=== PATIENT | male | born 1980 | race African-American/Black ===

== ENCOUNTER 2016-11-04 00:14 | Emergency (ER) | payer OTHER ==
[~2016-11-04] VITALS: Ht 190.5 cm; Wt 72.6 kg
[2016-11-04] MEDS ORDERED: RX-TRIMETH/SULFA. 160-800 MG (BACTRIM DS) TAB PPK#2 PO STA (00:25)
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
[2016-11-04] MEDS ORDERED: SULF1TAB35 PO (00:31)
[2016-11-04] MEDS ORDERED: SILV20CR14 TP (00:31)
[2016-11-04] MEDS ORDERED: SILVER SULFADIAZINE 50 GM CREAM ONE (00:34)
[2016-11-04] MEDS ORDERED: ADAL40PE2 SQ (00:39)
[2016-11-04 00:53] VITALS: BP 123/70
[2016-11-04] MEDS ORDERED: SILVER SULFADIAZINE 50 GM CREAM TOP SCH (09:00)
== END 2016-11-04 00:52 | disposition home or self-care (01) ==
LOC: ER 00:16
DX: T23.271A Burn of second degree of right wrist, initial encounter (principal); X12.XXXA Contact with other hot fluids, initial encounter; Y92.59 Other trade areas as the place of occurrence of the external cause; Y99.0 Civilian activity done for income or pay
CPT/HCPCS: 99283

== ENCOUNTER 2017-02-25 16:23 | Emergency (ER) | payer SELFPAY ==
[~2017-02-25] VITALS: Ht 190.5 cm; Wt 72.6 kg
[~2017-02-25 16:23] MED LIST: ADAL40PE2 SQ; SILV20CR14 TP; SULF1TAB35 PO
--- NOTE | 2017-02-25 17:58 | ED Integumentary General ---
General Chief Complaint: Skin/Wound Problems Stated Complaint: SKIN PROBLEMS Nursing Triage Note: AMB TO ROOM HAS AREA OF CONCERN AROUND COLOSTOMY THAT LOOK LIKE BLISTERS.HAS BEEN SEEN BY [facility] BUT STATES THEY DO NOT KNOW WHAT TO DO WITH IT. History of Present Illness Time seen by provider: 16:55 Initial Comments Patient reports excoriation and bleeding at stoma site for several months, he has been seen at [facility] and treated with different powders to try and assist with healing of the stoma edges. He had a colostomy done approximately 2 years ago for Crohn's disease. This was done in [place]. He does not see a general surgeon here. He reports the stoma is extremely sensitive and has been increasingly becoming more painful. He denies any other abdominal symptoms at the present time, he denies any changes in the effluent. He is well versed in his colostomy care M.D. for back on a regular basis changes the appliance as needed Timing/Duration: getting worse Severity: moderate Possible Cause: no cause identified Associated Symptoms: denies symptoms Allergies and Home Medications Allergies Coded Allergies: No Known Drug Allergies (Unverified , 11/04/16) Home Medications Adalimumab 40 Mg/0.8 Ml Pen.ij.kit, 40 MG SQ, (Reported) Silver Sulfadiazine 20 Gm Cream..g., 0 TP BID, #1 Prescribed by: ADA HARRISON on 11/04/16 0031 Constitutional: no symptoms reported, see HPI EENTM: no symptoms reported, see HPI Respiratory: no symptoms reported, see HPI Cardiovascular: no symptoms reported, see HPI Gastrointestinal: see HPI, abdominal pain (at stoma site from colostomy) Genitourinary: no symptoms reported, see HPI Musculoskeletal: no symptoms reported, see HPI Skin: see HPI, other (excoriation at stoma site) Psychiatric/Neurological: No Symptoms Reported, See HPI Endocrine: No Symptoms Reported, See HPI Hematologic/Lymphatic: No Symptoms Reported, See HPI All Other Systems Reviewed Negative Unless Noted: Yes Past Vbedkmz-Cbldgd-Rvsqdb Hx Patient Social History Alcohol Use: Denies Use Recreational Drug Use: No Smoking Status: Current Everyday Smoker Type Used: Cigars, Cigarettes Recent Foreign Travel: No Contact w/Someone Who Travel: No Recent Infectious Disease Expo: No Recent Hopitalizations: No Immunizations Up To Date Tetanus Booster (TDap): Less than 5yrs Seasonal Allergies Seasonal Allergies: No Surgeries HX Surgeries: Yes (colostomy) Respiratory Hx Respiratory Disorders: No Cardiovascular Hx Cardiac Disorders: No Neurological Hx Neurological Disorders: No Reproductive System Hx Reproductive Disorders: No Genitourinary Hx Genitourinary Disorders: No Gastrointestinal Hx Gastrointestinal Disorders: Yes Gastrointestinal Disorders: Crohns Disease Musculoskeletal Hx Musculoskeletal Disorders: No Endocrine Hx Endocrine Disorders: No HEENT HX ENT Disorders: No Cancer Hx Cancer: No Psychosocial Hx Psychiatric Problems: No Integumentary HX Skin/Integumentary Disorder: No Blood Transfusions Hx Blood Disorders: No Reviewed Nursing Assessment Reviewed/Agree w Nursing PMH: Yes Physical Exam Vital Signs Vital Sign - Last 12Hours 02/25/17 02/25/17 16:28 18:17 Temp 97.7 Pulse 79 Resp 18 B/P (MAP) 132/93 Pulse Ox 98 O2 Delivery Room Air Capillary Refill : Less Than 3 Seconds General Appearance: WD/WN, no apparent distress Neck: non-tender, full range of motion, normal inspection Cardiovascular: normal peripheral pulses, regular rate, rhythm, no murmur Respiratory: chest non-tender, lungs clear Gastrointestinal: normal bowel sounds, soft, no organomegaly, No distended (at stoma site), No rebound, tenderness Skin: normal color, warm/dry Skin Problem Location: other (abdomen) Skin Problem Character: tenderness Progress/Results/Core Measures Results/Orders My Orders Orders - MARY JO GONSALES Menthol/Zinc Oxide Ointment (Calmoseptin (02/25/17 21:00) Vital Signs/I&O Vital Sign - Last 12Hours 02/25/17 02/25/17 16:28 18:17 Temp 97.7 97.7 Pulse 79 79 Resp 18 18 B/P (MAP) 132/93 Pulse Ox 98 O2 Delivery Room Air Blood Pressure Mean: 106 Progress Note : Time: 16:55 Progress Note Initial evaluation completed. 1730 colostomy supplies obtained and Calmoseptin. Patient removed his appliance and back. The stoma showed mild excoriation of the skin edges. The stoma and skin were cleaned with sterile saline,it bled easily. It was cleaned dry and, septum was applied to the excoriated area. A new Way for appliance and back for a applied by the patient. This way for includes a removable bag so he can easily apply the, stepped into the irritated area. Discharge instructions were reviewed with the patient. He was encouraged that he follow up with a general surgeon if they stoma continues to be irritated. Encouraged him to clean the skin with gentle soap and water on a regular basis and empty the bag as soon as possible when effluent is present. 174 while preparing the patient's discharge papers, the patient left the hospital prior to discharge instructions being given or telling any staff. He did leave after obtaining extra supplies for his colostomy. Departure Impression Impression: Primary Impression: Stoma dermatitis Disposition: HOME, SELF-CARE Condition: Improved Departure-Patient Inst. Decision time for Depature: 17:30 Referrals: NO,LOCAL PHYSICIAN (PCP/Family) Primary Care Physician Patient Instructions: Ostomy Care, Adult Add. Discharge Instructions: All discharge instructions reviewed with patient and/or family. Voiced understanding. Keep stoma clean and apply Calmoseptine cream as needed Establish with Primary Care. Consider General Surgeon Evaluation if continued problems. Return to emergency department for abdominal pain, increased sensitivity at stoma site, limited or no effluent from the stoma, or new problems. Work/School Note: [employer] Listing Images Torso/Trunk 1 - Mild 2 - Mild, Other-See Progress Note MARY JO GONSALES Feb 25, 2017 17:58
[2017-02-25 18:17] VITALS: BP 132/93
[2017-02-25] MEDS ORDERED: MENTHOL/ZINC OXIDE (CALMOSEPTINE) 113 GM TUBE TOP SCH (21:00)
== END 2017-02-25 18:16 | disposition home or self-care (01) ==
LOC: EDUNIT# 16:23 → ER 16:25
DX: Z43.3 Encounter for attention to colostomy (principal); K50.90 Crohn's disease, unspecified, without complications; F17.210 Nicotine dependence, cigarettes, uncomplicated
CPT/HCPCS: 99281

== ENCOUNTER 2017-05-08 00:11 | Emergency (ER) | payer SELFPAY ==
[~2017-05-08] VITALS: Ht 190.5 cm; Wt 76.7 kg
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
[2017-05-08] MEDS ORDERED: ONDN4T PO (02:02)
[2017-05-08 02:15] VITALS: BP 111/75
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
== END 2017-05-08 02:15 | disposition home or self-care (01) ==
LOC: EDUNIT# 00:11 → ER 00:15
DX: Y92.59 Other trade areas as the place of occurrence of the external cause; F17.290 Nicotine dependence, other tobacco product, uncomplicated; Z93.3 Colostomy status; S06.0X9A Concussion with loss of consciousness of unspecified duration, initial encounter; K50.90 Crohn's disease, unspecified, without complications; Y00.XXXA Assault by blunt object, initial encounter
CPT/HCPCS: 70450; 72125; 99283

== ENCOUNTER 2018-07-20 08:34 | Outpatient (RCR) | payer OTHER ==
[2018-05-20] MEDS: methylPREDNISolone 40 MG/ML (Solu-MEDROL) VIAL IV SCH (12:02)
[2018-05-20] MEDS: diphenhydrAMINE 50 MG/ML INJ (BENADRYL) IV SCH (12:02)
[2018-05-20] MEDS: SODIUM CHLORIDE IV SCH ×2 (12:21)
[2018-05-20] MEDS: INFLIXIMAB IV SCH ×2 (12:21)
[2018-05-20 14:55] VITALS: BP 116/76
[2018-06-03 15:15] VITALS: BP 115/82
[2018-06-03] MEDS: diphenhydrAMINE 50 MG/ML INJ (BENADRYL) IV SCH (15:35)
[2018-06-03] MEDS: methylPREDNISolone 40 MG/ML (Solu-MEDROL) VIAL IV SCH (15:39)
[2018-06-03] MEDS: INFLIXIMAB IV SCH ×2 (16:00)
[2018-06-03] MEDS: SODIUM CHLORIDE IV SCH ×2 (16:00)
[2018-06-03 18:15] VITALS: BP 115/82
[~2018-07-20] VITALS: Ht 190.5 cm; Wt 76.7 kg
[~2018-07-20 08:34] MED LIST changes: +ONDN4T PO; +diphenhydrAMINE 50 MG/ML INJ (BENADRYL) ONE; +methylPREDNISolone 40 MG/ML (Solu-MEDROL) VIAL ONE
[2018-07-20] MEDS: diphenhydrAMINE 50 MG/ML INJ (BENADRYL) IV SCH (08:58)
[2018-07-20] MEDS: methylPREDNISolone 40 MG/ML (Solu-MEDROL) VIAL IV SCH (08:58)
[2018-07-20 09:03] VITALS: BP 128/92
[2018-07-20] MEDS: INFLIXIMAB IV SCH ×2 (09:17)
[2018-07-20] MEDS: SODIUM CHLORIDE IV SCH ×2 (09:17)
== END 2018-08-18 | disposition home or self-care (01) ==
LOC: SDC 08:34
PROVIDERS: ATTEND Internal Medicine Gastroenterology
DX: K50.90 Crohn's disease, unspecified, without complications (principal)
CPT/HCPCS: 96365; 96366; 96374; 96375

== ENCOUNTER 2018-10-18 08:25 | Outpatient (RCR) | payer OTHER ==
[2018-09-01 15:45] VITALS: BP 122/80
[2018-09-01] MEDS: methylPREDNISolone 40 MG/ML (Solu-MEDROL) VIAL IV SCH (15:58)
[2018-09-01] MEDS: diphenhydrAMINE 25 MG TAB (BENADRYL) PO SCH (16:03)
[2018-09-01] MEDS: SODIUM CHLORIDE IV SCH ×2 (16:05)
[2018-09-01] MEDS: INFLIXIMAB IV SCH ×2 (16:05)
[2018-09-01 18:15] VITALS: BP 0/0
[~2018-10-18] VITALS: Ht 190.5 cm; Wt 76.7 kg
[~2018-10-18 08:25] MED LIST changes: +diphenhydrAMINE 50 MG/ML INJ (BENADRYL) IV SCH; -diphenhydrAMINE 50 MG/ML INJ (BENADRYL) ONE; -methylPREDNISolone 40 MG/ML (Solu-MEDROL) VIAL ONE
[2018-10-18] MEDS: diphenhydrAMINE 25 MG TAB (BENADRYL) PO SCH (08:53)
[2018-10-18] MEDS: methylPREDNISolone 40 MG/ML (Solu-MEDROL) VIAL IV SCH (09:14)
[2018-10-18] MEDS: SODIUM CHLORIDE IV SCH ×2 (09:15)
[2018-10-18] MEDS: INFLIXIMAB IV SCH ×2 (09:15)
[2018-10-18 11:22] VITALS: BP 107/74
== END 2018-11-30 | disposition home or self-care (01) ==
LOC: SDC 08:25
PROVIDERS: ATTEND Internal Medicine Gastroenterology
DX: K50.90 Crohn's disease, unspecified, without complications (principal)
CPT/HCPCS: 96365; 96366; 96374

== ENCOUNTER 2019-07-18 12:13 | Observation (INO) | payer BC | END 2019-07-19 12:10 | disposition left against medical advice (07) | LOC: ER 12:13 → 4TH 15:48 ==

== ENCOUNTER 2019-08-01 21:38 | Emergency (ER) | payer BC ==
[~2019-08-01] VITALS: Ht 193 cm; Wt 70.4 kg
[~2019-08-01 21:38] MED LIST changes: +HYDR-3820; -diphenhydrAMINE 50 MG/ML INJ (BENADRYL) IV SCH
--- NOTE | 2019-08-01 21:51 | ED Integumentary General ---
General Chief Complaint: General Problems/Pain Stated Complaint: INCISION PROBLEMS Source: patient Exam Limitations: no limitations (NGOC HATHAWAY APRN) History of Present Illness Date Seen by Provider: Aug 01, 2019 Time Seen by Provider: 21:48 Initial Comments To ER with reports of concerns about an abdominal wall abscess. He was seen here 19 July with a abdominal wall abscess, is admitted to the hospital on IV antibiotics, left AGAINST MEDICAL ADVICE, he was going to follow-up with his surgeon tomorrow, Dr. Jackson in [place] if his symptoms worsen today in terms of size of the area of firmness of the abdominal wall and pain so he came here. Timing/Duration: just prior to arrival Severity: moderate Location: generalized Possible Cause: no cause identified Associated Symptoms: denies symptoms (NGOC HATHAWAY APRN) Allergies and Home Medications Allergies Coded Allergies: No Known Drug Allergies (Unverified , 11/04/16) Home Medications Ciprofloxacin HCl 500 Mg Tablet, 500 MG PO BID Prescribed by: ELDER KHAN on 08/02/19217 Hydrocodone Bit/Acetaminophen 1 Tab Tab, 1 EACH PO Q4-6HR PRN for PAIN-MODERATE Prescribed by: ELDER KHAN on 08/02/19217 Metronidazole 500 Mg Tablet, 500 MG PO TID Prescribed by: ELDER KHAN on 08/02/19217 Patient Home Medication List Home Medication List Reviewed: Yes (NGOC HATHAWAY APRN) Review of Systems Review of Systems Constitutional: see HPI EENTM: see HPI Respiratory: no symptoms reported Cardiovascular: no symptoms reported Gastrointestinal: abdominal pain Genitourinary: no symptoms reported Musculoskeletal: no symptoms reported Skin: no symptoms reported Psychiatric/Neurological: No Symptoms Reported Endocrine: No Symptoms Reported (NGOC HATHAWAY APRN) Past Lurkcco-Ioczel-Vycvjm Hx Patient Social History Drug of Choice: POT Type Used: Cigars Recent Foreign Travel: No Contact w/Someone Who Travel: No Recent Hopitalizations: No (NGOC HATHAWAY APRN) Immunizations Up To Date Tetanus Booster (TDap): Less than 5yrs (NGOC HATHAWAY APRN) Seasonal Allergies Seasonal Allergies: No (NGOC HATHAWAY APRN) Past Medical History Surgeries: Yes Bowel Surgery Respiratory: No Cardiac: No Neurological: No Reproductive Disorders: No Genitourinary: No Gastrointestinal: Yes Crohns Disease Musculoskeletal: No Endocrine: No HEENT: No Cancer: No Psychosocial: No Integumentary: No Blood Disorders: No (NGOC HATHAWAY APRN) Family Medical History No Pertinent Family Hx (NGOC HATHAWAY APRN) Physical Exam Vital Signs Vital Signs - First Documented 08/01/19 21:52 Temp 35.8 Pulse 78 Resp 20 B/P (MAP) 122/93 (103) Pulse Ox 100 O2 Delivery Room Air (ELDER MIRELES MD) Vital Signs Capillary Refill : (NGOC HATHAWAY APRN) General Appearance: WD/WN, no apparent distress HEENT: PERRL/EOMI, normal ENT inspection Respiratory: no respiratory distress, no accessory muscle use Extremities: normal range of motion, non-tender Neurologic/Psychiatric: alert, normal mood/affect, oriented x 3 Skin: normal color, warm/dry Skin Problem Character: other (to the medial inferior aspect of the ileostomy and at the site of the previous healed incision from former colostomy is an area about 2 cm wide and 4 cm long of induration but no fluctuance.) (NGOC HATHAWAY APRN) Progress/Results/Core Measures Results/Orders Lab Results Laboratory Tests Test 08/01/19 22:10 08/01/19 23:35 Range/Units White Blood Count 13.1 H 4.3-11.0 10^3/uL Red Blood Count 4.50 4.35-5.85 10^6/uL Hemoglobin 13.0 L 13.3-17.7 G/DL Hematocrit 39 L 40-54 % Mean Corpuscular Volume 87 80-99 FL Mean Corpuscular Hemoglobin 29 25-34 PG Mean Corpuscular Hemoglobin Concent 33 32-36 G/DL Red Cell Distribution Width 16.5 H 10.0-14.5 % Platelet Count 387 130-400 10^3/uL Mean Platelet Volume 9.8 7.4-10.4 FL Neutrophils (%) (Auto) 77 H 42-75 % Lymphocytes (%) (Auto) 15 12-44 % Monocytes (%) (Auto) 7 0-12 % Eosinophils (%) (Auto) 1 0-10 % Basophils (%) (Auto) 0 0-10 % Neutrophils # (Auto) 10.1 H 1.8-7.8 X 10^3 Lymphocytes # (Auto) 1.9 1.0-4.0 X 10^3 Monocytes # (Auto) 1.0 0.0-1.0 X 10^3 Eosinophils # (Auto) 0.1 0.0-0.3 10^3/uL Basophils # (Auto) 0.0 0.0-0.1 10^3/uL Sodium Level 137 135-145 MMOL/L Potassium Level 3.5 L 3.6-5.0 MMOL/L Chloride Level 104 98-107 MMOL/L Carbon Dioxide Level 22 21-32 MMOL/L Anion Gap 11 5-14 MMOL/L Blood Urea Nitrogen 13 7-18 MG/DL Creatinine 1.06 0.60-1.30 MG/DL Estimat Glomerular Filtration Rate > 60 BUN/Creatinine Ratio 12 Glucose Level 110 H 70-105 MG/DL Calcium Level 9.6 8.5-10.1 MG/DL Corrected Calcium 9.5 8.5-10.1 MG/DL Total Bilirubin 0.2 0.1-1.0 MG/DL Aspartate Amino Transf (AST/SGOT) 26 5-34 U/L Alanine Aminotransferase (ALT/SGPT) 25 0-55 U/L Alkaline Phosphatase 69 40-136 U/L Total Protein 7.8 6.4-8.2 GM/DL Albumin 4.1 3.2-4.5 GM/DL Urine Color YELLOW Urine Clarity CLEAR Urine pH 5 5-9 Urine Specific [place] 1.025 H 1.016-1.022 Urine Protein 3+ H NEGATIVE Urine Glucose (UA) NEGATIVE NEGATIVE Urine Ketones NEGATIVE NEGATIVE Urine Nitrite NEGATIVE NEGATIVE Urine Bilirubin NEGATIVE NEGATIVE Urine Urobilinogen NORMAL NORMAL MG/DL Urine Leukocyte Esterase NEGATIVE NEGATIVE Urine RBC (Auto) NEGATIVE NEGATIVE Urine RBC NONE /HPF Urine WBC RARE /HPF Urine Squamous Epithelial Cells 0-2 /HPF Urine Crystals NONE /LPF Urine Bacteria FEW H /HPF Urine Casts NONE /LPF Urine Mucus LARGE H /LPF Urine Culture Indicated NO (ELDER MIRELES MD) My Orders Orders - ELDER MIRELES MD Iohexol Injection (Omnipaque 350 Mg/Ml 1 (08/01/19 23:45) Received Contrast (Hold Metformin- Contr (08/01/19 23:45) Ns (Ivpb) (Sodium Chloride 0.9% Ivpb Bag (08/01/19 23:45) Diatrizoate Meglum/Sodium 37% (Gastrogra (08/01/19 23:45) Fentanyl Injection (Sublimaze Injection (08/02/19 00:15) Oxycodone/Apap 5/325mg Tablet (Percocet (08/02/19 01:45) Piperacillin/Tazobactam (Bulk) (Zosyn In (08/02/19 01:45) Piperacillin Sodium/Tazobactam (Zosyn Vi (08/02/19 01:45) Piperacillin Sodium/Tazobactam (Zosyn Vi (08/02/19 01:46) Ns (Ivpb) (Sodium Chloride 0.9% Ivpb Bag (08/02/19 01:47) (ELDER MIRELES MD) Medications Given in ED Current Medications Medications Dose Ordered Sig/Darryl Route Start Time Stop Time Status Last Admin Dose Admin Diatrizoate Meglum/ Diatrizoate Sod 120 ml ONCE ONCE PO 08/01/19 23:45 08/01/19 23:46 DC 08/01/19 23:47 25 ML Fentanyl Citrate 50 mcg ONCE ONCE IVP 08/02/19 00:15 08/02/19 00:16 DC 08/02/19 00:25 50 MCG Iohexol 100 ml ONCE ONCE IV 08/01/19 23:45 08/01/19 23:46 DC 08/01/19 23:47 88 ML Oxycodone/ Acetaminophen 1 tab ONCE ONCE PO 08/02/19 01:45 08/02/19 01:46 DC 08/02/19 02:00 1 TAB Piperacillin Sod/ Tazobactam Sod 4.5 gm/Sodium Chloride 100 ml @ 200 mls/hr ONCE ONCE IV 08/02/19 01:45 08/02/19 02:14 DC 08/02/19 02:00 200 MLS/HR Sodium Chloride 100 ml ONCE ONCE IV 08/01/19 23:45 08/01/19 23:46 DC 08/01/19 23:47 80 ML (ELDER MIRELES MD) Vital Signs/I&O 08/01/19 21:52 Temp 35.8 Pulse 78 Resp 20 B/P (MAP) 122/93 (103) Pulse Ox 100 O2 Delivery Room Air (ELDER MIRELES MD) Progress Progress Note : Progress Note Care of this patient was assumed from Ngoc Hathaway NP at shift change. CT was pending. CT performed with oral contrast showed no definite fistula. There was a fluid collection near the region of the umbilicus suggestive of seroma or abscess. This was further to the right of his prior abscess. Patient had been admitted to the hospital last month but left AGAINST MEDICAL ADVICE. He presented to his surgeon, Dr. Culp, in [place] who lanced and drained his abscess. The swelling and firmness he is experiencing today is more to the right. He states the draining fistula that was created within the abscess was lanced further to the left has now stopped draining. He is afebrile but does have a mild leukocytosis. CT was reviewed and case was discussed with Dr. Marrero. Dr. Culp was not [facility] electronic at [place]. After reviewing the case with elected to treat with a dose of Zosyn in the emergency room followed by oral antibiotics at home. Patient's pain was treated with fentanyl followed by a Percocet tablet. Patient has appointment with Dr. Jackson tomorrow and will also contact Dr. Culp's office in the morning. Continuity of care is important in this case due to the complexity of his surgical problems. Patient is agreeable to this plan. I suspect the fluid collection noted on CT scan and palpable on exam is either an obstructed fistula or a new abscess developing. (ELDER MIRELES MD) Diagnostic Imaging Diagonstic Imaging: CT Plain Films/CT/US/NM/MRI: abdomen, pelvis Comments CT abdomen and pelvis was viewed by me and [employer] report reviewed. There was a subcutaneous fluid collection in the umbilical region measuring 1.7 cm x 2.2 cm x 0.7 cm. Fluid collection resembled seroma or abscess. (LEDER MIRELES MD) Departure Impression Primary Impression: Abdominal wall fistula Disposition: HOME, SELF-CARE Condition: Improved Departure-Patient Inst. Decision time for Depature: 02:00 (ELDER MIRELES MD) Referrals: NO,LOCAL PHYSICIAN (PCP/Family) Primary Care Physician Patient Instructions: Enterocutaneous Fistula (DC) Add. Discharge Instructions: Take your antibiotics as prescribed until otherwise directed. Please contact Dr. Culp as soon as possible for follow-up. Keep your appointment with Dr. Jackson tomorrow. Use your pain medication as prescribed. Stick to a clear liquid diet until otherwise instructed. Return to care if you have worsening symptoms. All discharge instructions reviewed with patient and/or family. Voiced understanding. Scripts Hydrocodone Bit/Acetaminophen (Hydrocodone/Acetaminophen 5/325mg Tablet) 1 Tab Tab 1 EACH PO Q4-6HR PRN for PAIN-MODERATE MDD 10, #10 TAB Prov: ELDER MIRELES MD 08/02/19 Metronidazole (Flagyl) 500 Mg Tablet 500 MG PO TID, #20 TAB Prov: ELDER MIRELES MD 08/02/19 Ciprofloxacin HCl (Ciprofloxacin HCl) 500 Mg Tablet 500 MG PO BID, #14 TAB Prov: ELDER MIRELES MD 08/02/19 Images Torso/Trunk 1 - Other-See Progress Note (NGOC HATHAWAY APRN) Copy Copies To 1: GUSTAVO MARRERO PETER J APRN Aug 01, 2019 21:51 ELDER MIRELES MD Aug 02, 2019 02:17
[2019-08-01 22:17] LABS: BASOPHILS % (AUTO) 0 % (0-10); EOSINOPHILS # (AUTO) 0.1 10^3/uL (0.0-0.3); EOSINOPHILS % (AUTO) 1 % (0-10); HEMATOCRIT 39 % (40-54); LYMPHOCYTES # (AUTO) 1.9 X 10^3 (1.0-4.0); LYMPHOCYTES % (AUTO) 15 % (12-44); MEAN CORPUSCULAR HEMOGLOBIN 29 PG (25-34); MEAN CORPUSCULAR HGB CONC 33 G/DL (32-36); MEAN CORPUSCULAR VOLUME 87 FL (80-99); MEAN PLATELET VOLUME 9.8 FL (7.4-10.4); MONOCYTES % (AUTO) 7 % (0-12); NEUTROPHILS # (AUTO) 10.1 X 10^3 (1.8-7.8); NEUTROPHILS % (AUTO) 77 % (42-75); PLATELET COUNT 387 10^3/uL (130-400); RED CELL DISTRIBUTION WIDTH 16.5 % (10.0-14.5); WHITE BLOOD COUNT 13.1 10^3/uL (4.3-11.0)
[2019-08-01 22:37] LABS: ALANINE AMINOTRANSFERASE 25 U/L (0-55); ALBUMIN 4.1 GM/DL (3.2-4.5); ALKALINE PHOSPHATASE 69 U/L (40-136); BILIRUBIN,TOTAL 0.2 MG/DL (0.1-1.0); BUN/CREATININE RATIO 12; CALCIUM 9.6 MG/DL (8.5-10.1); CARBON DIOXIDE 22 MMOL/L (21-32); CHLORIDE 104 MMOL/L (98-107); CREATININE SERUM 1.06 MG/DL (0.60-1.30); GFR ESTIMATED > 60; GLUCOSE 110 MG/DL (70-105); POTASSIUM 3.5 MMOL/L (3.6-5.0); SODIUM 137 MMOL/L (135-145); TOTAL PROTEIN 7.8 GM/DL (6.4-8.2)
[2019-08-01 23:42] LABS: BILIRUBIN,URINE NEGATIVE (NEGATIVE); CLARITY,URINE CLEAR; COLOR,URINE YELLOW; GLUCOSE, URINE (UA) NEGATIVE (NEGATIVE); KETONES,URINE NEGATIVE (NEGATIVE); LEUKOCYTE ESTERASE ,URINE NEGATIVE (NEGATIVE); NITRITE,URINE NEGATIVE (NEGATIVE); PH,URINE 5 (5-9); PROTEIN,URINE 3+ (NEGATIVE); UROBILINOGEN,URINE NORMAL (NORMAL)
[2019-08-01] MEDS ORDERED: NS 100 ML (IVPB) BAG IV ONE (23:45)
[2019-08-01] MEDS ORDERED: IOHEXOL 350 MG/ML 100 ML (OMNIPAQUE 350) VIAL IV ONE (23:45)
[2019-08-01] MEDS ORDERED: HOLD METFORMIN - RECEIVED CONTRAST 20 ML VIAL IV SCH (23:45)
[2019-08-01] MEDS ORDERED: DIATRIZOATE MEGLUM/SODIUM 37% 120 ML (GASTROGRAFIN) PO ONE (23:45)
[2019-08-01 23:56] LABS: BACTERIA,URINE FEW /HPF; SQUAMOUS EPITHELIAL CELL,UR 0-2 /HPF; WBC,URINE RARE /HPF
[2019-08-02] MEDS ORDERED: fentaNYL INJECTION 100 MCG/2 ML AMP IVP ONE (00:15)
[2019-08-02] MEDS ORDERED: PIPERACILLIN SODIUM/TAZOBACTAM 4.5 GM in NS (IVPB) 100 ML IV ONE (01:45)
[2019-08-02] MEDS ORDERED: PIPERACILLIN/TAZOBACTAM (BULK) 4.5 GM in NS (IVPB) 100 ML IV ONE (01:45)
[2019-08-02] MEDS ORDERED: oxyCODONE/APAP 5/325MG (PERCOCET 5) TABLET PO ONE (01:45)
[2019-08-02] MEDS ORDERED: PIPERACILLIN/TAZO 4.5 GM VIAL (ZOSYN) IV ONE (01:46)
[2019-08-02] MEDS ORDERED: NS (IVPB) 100 ML ONE (01:47)
[2019-08-02] MEDS ORDERED: METR500T PO (02:18)
[2019-08-02] MEDS ORDERED: ACHD5005 PO (02:18)
[2019-08-02] MEDS ORDERED: CIPR500T4 PO (02:18)
[2019-08-02 02:28] VITALS: BP 117/68
--- NOTE | 2019-08-02 06:59 | Diagnostic Imaging Report ---
PROCEDURE: CT abdomen and pelvis with contrast. TECHNIQUE: Multiple contiguous axial images were obtained through the abdomen and pelvis after administration of intravenous contrast. Auto Exposure Controls were utilized during the CT exam to meet ALARA standards for radiation dose reduction. INDICATION: Abdominal wall pain. Comparison is made study of 07/18/2019. FINDINGS: No focal hepatic, splenic, pancreatic or adrenal gland abnormality is identified. There is contraction of the gallbladder. There is no evidence of bowel obstruction. Right lower quadrant ileostomy site is present. There is induration in the subcutaneous tissues at the level of the umbilicus with an approximately 2 cm fluid collection present. Partially opacified urinary bladder is unremarkable. IMPRESSION: Subcutaneous umbilical region induration may represent cellulitis with an approximately 2 cm seroma or possible abscess present. Dictated by: Dictated on workstation # [id number]
== END 2019-08-02 02:28 | disposition home or self-care (01) ==
LOC: EDUNIT# 21:38 → ER 21:39
DX: K63.2 Fistula of intestine (principal); Z98.890 Other specified postprocedural states; Z87.19 Personal history of other diseases of the digestive system
CPT/HCPCS: 36415; 74177; 80053; 81000; 85025

== ENCOUNTER 2019-08-28 09:53 | Emergency (ER) | payer BC ==
[~2019-08-28] VITALS: Ht 193 cm; Wt 68.2 kg
[~2019-08-28 09:53] MED LIST changes: +ACHD5005 PO; +CIPR500T4 PO; +METR500T PO
[2019-08-28] MEDS ORDERED: NS IV 1000 ML 1,000 ML IV ONE (11:30)
--- NOTE | 2019-08-28 11:57 | ED General ---
General Chief Complaint: Skin/Wound Problems Stated Complaint: ABSCESS Nursing Triage Note: PT AMB TO RM 10 WITH COMPLAINT OF ABSCESS ON STOMACH. STATES HE HAS BEEN HAVING A RECURRENT ABSCESS. HAS BEEN SEEING DR NAYAK IN [place] AND HAS APPOINTMENT WITH IN NOVEMBER. Nursing Sepsis Screen: No Definite Risk Source of Information: Patient Exam Limitations: No Limitations History of Present Illness Date Seen by Provider: Aug 28, 2019 Time Seen by Provider: 11:05 Initial Comments Here with report of abscesses on his stomach near midline. Complicated case and has had complicated course after colostomy takedown and ileostomy placement. Did have abscess to the left lower abdomen in the scar line. That drained for a long time up until yesterday. Has had other abscess areas midline to the lower abdome n. He is been on at least 3 rounds of antibiotics and has had drainage twice from his surgeon. He currently has referral to [facility] for these recurrent abscesses after ileostomy. He has been seen here and at [facility] in [place], [place] for the same. The abscess/swelling area now is much worse and he would like to be seen here. If we're unable to care for him here then he would prefer to go to as [facility] has already established the need for him to be evaluated there. Again the patient would prefer to be seen here if possible but will follow recommendations after evaluation. Has had night sweats and fevers. Has increasing pain to that area. Denies change in stools. Urinating okay. Timing/Duration: Intermittent, Other (several months but worse over the last 1- 2 days) Severity: Moderate Modifying Factors: improves with Medication Associated Systoms: No Chest Pain, No Cough; Fever/Chills; No Nausea/Vomiting, No Shortness of Air, No Weakness Allergies and Home Medications Allergies Coded Allergies: No Known Drug Allergies (Unverified , 11/04/16) Home Medications Ciprofloxacin HCl 500 Mg Tablet, 500 MG PO BID Prescribed by: ELDER KHAN on 08/02/19217 Hydrocodone Bit/Acetaminophen 1 Tab Tab, 1 EACH PO Q4-6HR PRN for PAIN-MODERATE Prescribed by: ELDER KHAN on 08/02/19217 Metronidazole 500 Mg Tablet, 500 MG PO TID Prescribed by: ELDER KHAN on 10/2/19 0218 Patient Home Medication List Home Medication List Reviewed: Yes Review of Systems Review of Systems Constitutional: see HPI, chills, fever EENTM: no symptoms reported Respiratory: no symptoms reported Cardiovascular: No chest pain, No edema Gastrointestinal: abdominal pain; No nausea, No vomiting Genitourinary: no symptoms reported Musculoskeletal: No joint pain; muscle pain Skin: change in color, lesions Psychiatric/Neurological: No Symptoms Reported All Other Systems Reviewed Negative Unless Noted: Yes Past Wfrlknu-Deotcq-Ogcbgq Hx Past Med/Social Hx: Reviewed Nursing Past Med/Soc Hx Patient Social History Alcohol Use: Denies Use Recreational Drug Use: Yes Drug of Choice: POT Smoking Status: Current Everyday Smoker Type Used: Cigars Recent Foreign Travel: No Contact w/Someone Who Travel: No Recent Infectious Disease Expo: No Recent Hopitalizations: No Physical Abuse: No Sexual Abuse: No Mistreated: No Fear: No Immunizations Up To Date Tetanus Booster (TDap): Less than 5yrs Seasonal Allergies Seasonal Allergies: No Past Medical History Surgeries: Yes (ILEOSTOMY 2018) Bowel Surgery Respiratory: No Cardiac: No Neurological: No Reproductive Disorders: No Genitourinary: No Gastrointestinal: Yes Crohns Disease Musculoskeletal: No Endocrine: No HEENT: No Cancer: No Psychosocial: No Integumentary: No Blood Disorders: No Family Medical History Reviewed Nursing Family Hx No Pertinent Family Hx Physical Exam Vital Signs Vital Signs - First Documented 08/28/19 10:02 Temp 35.5 Pulse 77 Resp 16 B/P (MAP) 120/87 (98) Pulse Ox 100 O2 Delivery Room Air Capillary Refill : Less Than 3 Seconds Height, Weight, BMI Height: 6'3.00" Weight: 169lbs. 0.0oz. [id number]; 18.00 BMI Method:Stated General Appearance: WD/WN, Mild Distress (pain related) HEENT: PERRL/EOMI, Pharynx Normal Neck: Non Tender, Supple Respiratory: Lungs Clear, Normal Breath Sounds Cardiovascular: Regular Rate, Rhythm, No Murmur Gastrointestinal: Soft, Tenderness (midline lower where there is obvious fluctuant area along the midline scar that tracks lateral each way. ) Back: Normal Inspection, No CVA Tenderness, No Vertebral Tenderness Extremity: Normal Range of Motion, Non Tender Neurologic/Psychiatric: Alert, Oriented x3 Skin: Warm/Dry, Erythema (low abdomen at midline over area of concern for abscess.), Other (area of fluctuance approximately 4 cm x 10 cm at the belt line horizontally oriented. Erythema, tenderness and warmth noted to the area of concern.) Focused Exam Lactate Level 08/28/19 11:48: Lactic Acid Level 0.85 Lactic Acid Level Progress/Results/Core Measures Suspected Sepsis Recent Fever Within 48 Hours: No Infection Criteria Present: None New/Unexplained Altered Menta: No Sepsis Screen: No Definite Risk SIRS Temperature: Pulse: 77 Respiratory Rate: 16 Laboratory Tests 08/28/19 11:48: White Blood Count 12.4H Blood Pressure 120 /87 Mean: 98 08/28/19 11:48: Lactic Acid Level 0.85 Laboratory Tests 08/28/19 11:48: Creatinine 1.08, Platelet Count 317, Total Bilirubin 0.5 Results/Orders Lab Results Laboratory Tests Test 08/28/19 11:48 Range/Units White Blood Count 12.4 H 4.3-11.0 10^3/uL Red Blood Count 5.00 4.35-5.85 10^6/uL Hemoglobin 14.3 13.3-17.7 G/DL Hematocrit 44 40-54 % Mean Corpuscular Volume 88 80-99 FL Mean Corpuscular Hemoglobin 29 25-34 PG Mean Corpuscular Hemoglobin Concent 33 32-36 G/DL Red Cell Distribution Width 16.1 H 10.0-14.5 % Platelet Count 317 130-400 10^3/uL Mean Platelet Volume 9.8 7.4-10.4 FL Neutrophils (%) (Auto) 81 H 42-75 % Lymphocytes (%) (Auto) 10 L 12-44 % Monocytes (%) (Auto) 8 0-12 % Eosinophils (%) (Auto) 1 0-10 % Basophils (%) (Auto) 0 0-10 % Neutrophils # (Auto) 10.0 H 1.8-7.8 X 10^3 Lymphocytes # (Auto) 1.3 1.0-4.0 X 10^3 Monocytes # (Auto) 1.0 0.0-1.0 X 10^3 Eosinophils # (Auto) 0.1 0.0-0.3 10^3/uL Basophils # (Auto) 0.0 0.0-0.1 10^3/uL Sodium Level 137 135-145 MMOL/L Potassium Level 3.6 3.6-5.0 MMOL/L Chloride Level 102 98-107 MMOL/L Carbon Dioxide Level 23 21-32 MMOL/L Anion Gap 12 5-14 MMOL/L Blood Urea Nitrogen 9 7-18 MG/DL Creatinine 1.08 0.60-1.30 MG/DL Estimat Glomerular Filtration Rate > 60 BUN/Creatinine Ratio 8 Glucose Level 91 70-105 MG/DL Lactic Acid Level 0.85 0.50-2.00 MMOL/L Calcium Level 10.2 H 8.5-10.1 MG/DL Corrected Calcium 9.9 8.5-10.1 MG/DL Total Bilirubin 0.5 0.1-1.0 MG/DL Aspartate Amino Transf (AST/SGOT) 20 5-34 U/L Alanine Aminotransferase (ALT/SGPT) 20 0-55 U/L Alkaline Phosphatase 64 40-136 U/L C-Reactive Protein High Sensitivity 2.40 H 0.00-0.50 MG/DL Total Protein 8.1 6.4-8.2 GM/DL Albumin 4.4 3.2-4.5 GM/DL My Orders Orders - IRENE ROSALES MD Ed Iv/Invasive Line Start (08/28/19 11:30) Ns Iv 1000 Ml (Sodium Chloride 0.9%) (08/28/19 11:30) Cbc With Automated Diff (08/28/19 11:30) Comprehensive Metabolic Panel (08/28/19 11:30) Hs C Reactive Protein (08/28/19 11:30) Lactic Acid Analyzer (08/28/19 11:30) Blood Culture (08/28/19 11:30) Fentanyl Injection (Sublimaze Injection (08/28/19 12:00) Ketorolac Injection (Toradol Injection) (08/28/19 12:00) Ct Abdomen/Pelvis W (08/28/19 13:11) Iohexol Injection (Omnipaque 350 Mg/Ml 1 (08/28/19 13:30) Di Iv Start (Assessment) .IV start (08/28/19 13:19) Received Contrast (Hold Metformin- Contr (08/28/19 13:30) Sodium Chloride Flush (Catheter Flush Sy (08/28/19 13:30) Ns (Ivpb) (Sodium Chloride 0.9% Ivpb Bag (08/28/19 13:30) Fentanyl Injection (Sublimaze Injection (08/28/19 14:28) Lidocaine 1% Inj 20 Ml (Xylocaine 1% Inj (08/28/19 16:08) Hydromorphone Injection (Dilaudid Inject (08/28/19 16:15) Hydromorphone Injection (Dilaudid Inject (08/28/19 16:16) Medications Given in ED Current Medications Medications Dose Ordered Sig/Darryl Route Start Time Stop Time Status Last Admin Dose Admin Hydromorphone HCl 1 mg ONCE ONCE IV 08/28/19 16:15 08/28/19 16:18 DC 08/28/19 16:20 1 MG Iohexol 100 ml ONCE ONCE IV 08/28/19 13:30 08/28/19 13:31 DC 08/28/19 13:41 85 ML Sodium Chloride 10 ml NEEDED PRN IV 08/28/19 13:30 08/28/19 13:41 10 ML Sodium Chloride 100 ml ONCE ONCE IV 08/28/19 13:30 08/28/19 13:31 DC 08/28/19 13:41 80 ML Sodium Chloride 1,000 ml @ 0 mls/hr Q0M ONCE IV 08/28/19 11:30 08/28/19 11:31 DC 08/28/19 12:04 1,000 MLS/HR Vital Signs/I&O 08/28/19 10:02 Temp 35.5 Pulse 77 Resp 16 B/P (MAP) 120/87 (98) Pulse Ox 100 O2 Delivery Room Air Capillary Refill : Less Than 3 Seconds Blood Pressure Mean: 98 POS Progress Note : Progress Note Seen and evaluated. IV, labs, blood cultures, lactic acid and normal saline 1 L bolus ordered. Anticipate CT scan with contrast after labs are complete. 1426: I discussed the case with Dr. Goins related to CT findings. He will see the patient in the ER. Fentanyl 50 g IV. 1650: Dr. Goins has seen the patient in the emergency department and done I&D of the wound as well as packing. Patient did receive fentanyl 75 g IV earlier and then repeat dosing with Dilaudid 1 mg IV for pain. We will discharge the patient on Bactrim DS. He will follow up in clinic with Dr. Goins. Discharged home with return precautions. Patient verbalize understanding instructions and agreement with plan. Diagnostic Imaging Diagonstic Imaging: CT Plain Films/CT/US/NM/MRI: abdomen, pelvis Comments [facility]. POS [place], [place] POS NAME: ANKUR PATTEN [facility] REC#: [id number] PT STATUS: REG ER : 1980 PHYSICIAN: IRENE ROSALES MD ADMIT DATE: 08/28/19/ER Draft POSDate of Exam:08/28/19 CT ABDOMEN/PELVIS W PROCEDURE: CT abdomen and pelvis with contrast. TECHNIQUE: Multiple contiguous axial images were obtained through the abdomen and pelvis after administration of intravenous contrast. Auto Exposure Controls were utilized during the CT exam to meet ALARA standards for radiation dose reduction. INDICATION: Crohn's. History of abscess. COMPARISON: Study compared 08/01/2019. FINDINGS: The infraumbilical subcutaneous fluid collection shows rim enhancement and some adjacent edematous changes of the regional subcutaneous fat and overlying skin thickening. Subcutaneous abscess is suspected. Correlate with clinical findings at that level. This collection measures 2.4 cm maximal, previously 2.2 cm. No rectus sheath collection is found. Posterior to the abdominal wall there is no abnormality. There is a right lower quadrant diverting ostomy. The small and large bowel showed no obstructive features or acute inflammatory changes. Liver, spleen, adrenals, and pancreas are unremarkable. The kidneys are unobstructed. IMPRESSION: Infraumbilical midline subcutaneous abdominal fluid collection rim-enhancing increased in size from prior, suspicious for abscess. This could be aspirated percutaneously. If imaging guidance is needed, this could be done with ultrasound or CT. Dictated on workstation # [id number] Dict: 08/28/19 1405 Trans: 08/28/19 1414 [facility] [id number] Interpreted by: ROLANDO SHEIKH Electronically signed by: Departure Impression Primary Impression: Abdominal wall abscess Disposition: HOME, SELF-CARE Condition: Improved Departure-Patient Inst. Decision time for Depature: 16:56 Referrals: NO,LOCAL PHYSICIAN (PCP/Family) Primary Care Physician Patient Instructions: Abscess Incision and Drainage (DC) Add. Discharge Instructions: All discharge instructions reviewed with patient and/or family. Voiced understanding. Take medications as directed. You may take ibuprofen 600 mg every 8 hours as needed for pain. You may also take Tylenol/acetaminophen 1000 mg every 8 hours as needed for pain. Follow-up with Dr. Goins in his office this week for recheck and further evaluation. Return for worse pain, fever, vomiting, weakness, breathing problems or other concerns as needed. Wound care per Dr. Goins's instructions. Scripts Sulfamethoxazole/Trimethoprim (Sulfamethoxazole-Tmp Ds Tablet) 1 Each Tablet 1 EACH PO BID, #20 TAB 0 Refills Prov: IRENE ROSALES MD 08/28/19 Copy Copies To 1: PAPA GOINS TIMOTHY D MD Aug 28, 2019 11:57 POS
[2019-08-28] MEDS ORDERED: fentaNYL INJECTION 100 MCG/2 ML AMP IVP STA ×2 (12:00→14:28)
[2019-08-28] MEDS ORDERED: KETOROLAC 30 MG/ML VIAL IVP STA (12:00)
[2019-08-28 12:05] LABS: BASOPHILS % (AUTO) 0 % (0-10); EOSINOPHILS # (AUTO) 0.1 10^3/uL (0.0-0.3); EOSINOPHILS % (AUTO) 1 % (0-10); HEMATOCRIT 44 % (40-54); HEMOGLOBIN 14.3 G/DL (13.3-17.7); LYMPHOCYTES # (AUTO) 1.3 X 10^3 (1.0-4.0); LYMPHOCYTES % (AUTO) 10 % (12-44); MEAN CORPUSCULAR HEMOGLOBIN 29 PG (25-34); MEAN CORPUSCULAR HGB CONC 33 G/DL (32-36); MEAN CORPUSCULAR VOLUME 88 FL (80-99); MEAN PLATELET VOLUME 9.8 FL (7.4-10.4); MONOCYTES % (AUTO) 8 % (0-12); NEUTROPHILS % (AUTO) 81 % (42-75); PLATELET COUNT 317 10^3/uL (130-400); RED CELL DISTRIBUTION WIDTH 16.1 % (10.0-14.5); WHITE BLOOD COUNT 12.4 10^3/uL (4.3-11.0)
[2019-08-28 12:25] LABS: ALANINE AMINOTRANSFERASE 20 U/L (0-55); ALBUMIN 4.4 GM/DL (3.2-4.5); ALKALINE PHOSPHATASE 64 U/L (40-136); BILIRUBIN,TOTAL 0.5 MG/DL (0.1-1.0); BUN/CREATININE RATIO 8; CALCIUM 10.2 MG/DL (8.5-10.1); CARBON DIOXIDE 23 MMOL/L (21-32); CHLORIDE 102 MMOL/L (98-107); CREATININE SERUM 1.08 MG/DL (0.60-1.30); GFR ESTIMATED > 60; GLUCOSE 91 MG/DL (70-105); POTASSIUM 3.6 MMOL/L (3.6-5.0); SODIUM 137 MMOL/L (135-145); TOTAL PROTEIN 8.1 GM/DL (6.4-8.2)
[2019-08-28] MEDS ORDERED: IOHEXOL 350 MG/ML 100 ML (OMNIPAQUE 350) VIAL IV ONE (13:30)
[2019-08-28] MEDS ORDERED: NS 100 ML (IVPB) BAG IV ONE (13:30)
[2019-08-28] MEDS ORDERED: HOLD METFORMIN - RECEIVED CONTRAST 20 ML VIAL IV SCH (13:30)
[2019-08-28] MEDS ORDERED: CATHETER FLUSH 10 ML SYR IV PRN (13:30)
--- NOTE | 2019-08-28 14:14 | Diagnostic Imaging Report ---
PROCEDURE: CT abdomen and pelvis with contrast. TECHNIQUE: Multiple contiguous axial images were obtained through the abdomen and pelvis after administration of intravenous contrast. Auto Exposure Controls were utilized during the CT exam to meet ALARA standards for radiation dose reduction. INDICATION: Crohn's. History of abscess. COMPARISON: Study compared 08/01/2019. FINDINGS: The infraumbilical subcutaneous fluid collection shows rim enhancement and some adjacent edematous changes of the regional subcutaneous fat and overlying skin thickening. Subcutaneous abscess is suspected. Correlate with clinical findings at that level. This collection measures 2.4 cm maximal, previously 2.2 cm. No rectus sheath collection is found. Posterior to the abdominal wall there is no abnormality. There is a right lower quadrant diverting ostomy. The small and large bowel showed no obstructive features or acute inflammatory changes. Liver, spleen, adrenals, and pancreas are unremarkable. The kidneys are unobstructed. IMPRESSION: Infraumbilical midline subcutaneous abdominal fluid collection rim-enhancing increased in size from prior, suspicious for abscess. This could be aspirated percutaneously. If imaging guidance is needed, this could be done with ultrasound or CT. Dictated by: Dictated on workstation # [id number]
[2019-08-28] MEDS ORDERED: LIDOCAINE 1% INJ 20 ML 20 ML VIAL ONE (16:08)
[2019-08-28] MEDS ORDERED: HYDROmorphone 2 MG/ML VIAL (DILAUDID) IV ONE (16:15)
[2019-08-28] MEDS ORDERED: HYDROmorphone 2 MG/ML VIAL (DILAUDID) ONE (16:16)
--- NOTE | 2019-08-28 16:22 | Consultation - Surgery ---
History of Present Illness History of Present Illness Patient Consulted On(kwabena/time) 08/28/19 16:17 Time Seen by Provider: 15:14 History of Present Illness Surgery asked to consult regarding abdominal wall abscess. HPI per ED: Here with report of abscesses on his stomach near midline. Complica michelle case and has had complicated course after colostomy takedown and ileostomy placement. Did have abscess to the left lower abdomen in the scar line. That drained for a long time up until yesterday. Has had other abscess areas midline to the lower abdomen. He is been on at least 3 rounds of antibiotics and has had drainage twice from his surgeon. He currently has referral to [facility] for these recurrent abscesses after ileostomy. He has been seen here and at [facility] in [place], [place] for the same. The abscess/swelling area now is much worse and he would like to be seen here. If we're unable to care for him here then he would prefer to go to as [facility] has already established the need for him to be evaluated there. Again the patient would prefer to be seen here if possible but will follow recommendations after evaluation. Has had night sweats and fevers. Has increasing pain to that area. Denies change in stools. Urinating okay. Timing/Duration: Intermittent, Other (several months but worse over the last 1- 2 days) Severity: Moderate Modifying Factors: improves with Medication Associated Systoms: No Chest Pain, No Cough; Fever/Chills; No Nausea/Vomiting, No Shortness of Air, No Weakness When I spoke to pt he states he feels like he is not being listened to at [facility] and they are just pushing him away. He describes the pain as 7 out of 10, not getting better. Radiating all over lower abdomen and worse with movement, only pain meds have helped pain. Allergies and Home Medications Allergies Coded Allergies: No Known Drug Allergies (Unverified , 11/04/16) Home Medications Ciprofloxacin HCl 500 Mg Tablet, 500 MG PO BID Prescribed by: ELDER KHAN on 08/02/19217 Hydrocodone Bit/Acetaminophen 1 Tab Tab, 1 EACH PO Q4-6HR PRN for PAIN-MODERATE Prescribed by: ELDER KHAN on 08/02/19217 Metronidazole 500 Mg Tablet, 500 MG PO TID Prescribed by: ELDER KHAN on 08/02/19 0218 Patient Home Medication List Home Medication List Reviewed: Yes Past Pcqdzkg-Iztwsk-Cbrxmy Hx Patient Social History Alcohol Use: Denies Use Recreational Drug Use: Yes Drug of Choice: POT Smoking Status: Current Everyday Smoker Type Used: Cigars Recent Foreign Travel: No Contact w/Someone Who Travel: No Recent Infectious Disease Expo: No Recent Hopitalizations: No Immunizations Up To Date Tetanus Booster (TDap): Less than 5yrs Seasonal Allergies Seasonal Allergies: No Surgeries History of Surgeries: Yes (ILEOSTOMY 2018) Surgeries: Bowel Surgery Respiratory History of Respiratory Disorde: No Cardiovascular History of Cardiac Disorders: No Neurological History of Neurological Disord: No Reproductive System Hx Reproductive Disorders: No Genitourinary History of Genitourinary Disor: No Gastrointestinal History of Gastrointestinal Di: Yes Gastrointestinal Disorders: Crohns Disease Musculoskeletal History of Musculoskeletal Dis: No Endocrine History of Endocrine Disorders: No HEENT History of HEENT Disorders: No Cancer History of Cancer: No Psychosocial History of Psychiatric Problem: No Integumentary History of Skin or Integumenta: No Blood Transfusions History of Blood Disorders: No Family Medical History Significant Family History: Heart Disease (Grandfather), Diabetes (grandmother), Hypertension (Father), Psychiatric Problems (Mom is "Very anxious person"), Other Conditions/Hx (denies any Crohn's in his family) Review of Systems-General Constitutional: chills, malaise; No weight loss EENTM: No blurred vision, No double vision, No mouth pain, No mouth swelling, No epistaxis Respiratory: No cough, No dyspnea on exertion, No hemoptysis, No short of breath Cardiovascular: No chest pain, No edema, No palpitations Gastrointestinal: abdominal pain; No jaundice, No nausea, No vomiting Genitourinary: No dysuria, No frequency, No hematuria Musculoskeletal: No joint pain, No joint swelling, No muscle pain, No muscle stiffness Skin: change in color; No change in hair/nails; lesions, lumps (midline scar) Psychiatric/Neurological: Denies Anxiety, Denies Depressed, Denies Seizure, Denies Tremors Other pt denies any hx of abnormal bleeding or bruising Physical Exam-General Problems Physical Exam Vital Signs Vital Signs - First Documented 08/28/19 10:02 Temp 35.5 Pulse 77 Resp 16 B/P (MAP) 120/87 (98) Pulse Ox 100 O2 Delivery Room Air Capillary Refill : Less Than 3 Seconds General Appearance: WD/WN, no apparent distress Eyes: Bilateral Eye PERRL, Bilateral Eye EOMI HEENT: pharynx normal; No scleral icterus (R), No scleral icterus (L), No pale conjunctivae (R), No pale conjunctivae (L) Neck: non-tender, full range of motion, supple, normal inspection Respiratory: chest non-tender, lungs clear, normal breath sounds, no respiratory distress, no accessory muscle use Cardiovascular: regular rate, rhythm, no edema, no murmur Gastrointestinal: normal bowel sounds, soft, no organomegaly, tenderness (midline lower abdomen in scar, with erythema), other (ileostomy pink and functioning) Back: no CVA tenderness, no vertebral tenderness Extremities: normal range of motion, non-tender, normal inspection, no pedal edema, no calf tenderness Neurologic/Psychiatric: tire man II-XII nml as tested, no motor/sensory deficits, alert, normal mood/affect, oriented x 3 Skin: normal color, warm/dry Lymphatic: no adenopathy (neck, axilla or groin) Data Review Labs Laboratory Tests 08/28/19 11:48: White Blood Count 12.4H, Red Blood Count 5.00, Hemoglobin 14.3, Hematocrit 44, Mean Corpuscular Volume 88, Mean Corpuscular Hemoglobin 29, Mean Corpuscular Hemoglobin Concent 33, Red Cell Distribution Width 16.1H, Platelet Count 317, Mean Platelet Volume 9.8, Neutrophils (%) (Auto) 81H, Lymphocytes (%) (Auto) 10L , Monocytes (%) (Auto) 8, Eosinophils (%) (Auto) 1, Basophils (%) (Auto) 0, Neutrophils # (Auto) 10.0H, Lymphocytes # (Auto) 1.3, Monocytes # (Auto) 1.0, Eosinophils # (Auto) 0.1, Basophils # (Auto) 0.0, Sodium Level 137, Potassium Level 3.6, Chloride Level 102, Carbon Dioxide Level 23, Anion Gap 12, Blood Urea Nitrogen 9, Creatinine 1.08, Estimat Glomerular Filtration Rate > 60, BUN/Creatinine Ratio 8, Glucose Level 91, Lactic Acid Level 0.85, Calcium Level 10.2H, Corrected Calcium 9.9, Total Bilirubin 0.5, Aspartate Amino Transf (AST/SGOT) 20, Alanine Aminotransferase (ALT/SGPT) 20, Alkaline Phosphatase 64, C-Reactive Protein High Sensitivity 2.40H, Total Protein 8.1, Albumin 4.4 Assessment/Plan Assessment/Plan Assessment/Plan Abdominal Wall Abscess/Cellulitis Hx of Crohn's Pt has abscess in the midline, directly under scar and it is causing pain. According to pt it seems to be getting worse. I went over CT myself and then discussed with the Radiologist, to small to get a CT guided drain into. He had an intraperitoneal abscess that is definitely better compared to last CT. There does not appear to be abscess under the ileostomy. Unsure if the SubQ abscess communicates with intraperi toneal one. Pt was given 4 options; do nothing except ABX, CT guided drainage, I&D with possible packing at bedside and Open Drainage. I think the first option won't work; he has tried and no improvement. The last option is not good because it would cause more problems; may be what is needed (even to remove mesh, because with mesh the infection will never clear) but would be a huge operation and best done at a Tertiary center. Unfortunately CT drainage not viable per IR and therefore bedside I&D with packing is his best option. Pt wants to do that. I will get consent and perform today. All questions answered to his satisfaction. PAPA GOINS DO Aug 28, 2019 16:22 POS
--- NOTE | 2019-08-28 16:56 | Progress Note-Post Operative ---
Post-Operative Progess Note Surgeon (s)/Transcribing Machine Operator (s) Surgeon PAPA GOINS DO Transcribing Machine Operator: none Pre-Operative Diagnosis Abd wall cellulitis/abscess Post-Operative Diagnosis same Procedure & Operative Findings Date of Procedure 08/28/19 Procedure Performed/Findings I&D with packing Anesthesia Type local lidocaine Estimated Blood Loss Estimated blood loss (mL): scant Specimens/Packing Specimens Removed wound culture PAPA GOINS DO Aug 28, 2019 16:56 POS
[2019-08-28] MEDS ORDERED: SULF-222 PO (16:57)
[2019-08-28] MEDS ORDERED: ACHD5005 PO (17:05)
[2019-08-28 17:16] VITALS: BP 115/84
--- NOTE | 2019-08-29 00:16 | OPERATIVE REPORT ---
DATE OF SERVICE: PREOPERATIVE DIAGNOSIS: Abdominal wall abscess cellulitis. POSTOPERATIVE DIAGNOSIS: Abdominal wall abscess cellulitis. PROCEDURE: Incision and drainage with packing. SURGEON: Randall Simmons DO. RESERVATIONS AGENT: None. ANESTHESIA: Local lidocaine. BLOOD LOSS: Scant. FLUIDS: None. CULTURES OBTAINED: Sent to pathology. INDICATION FOR PROCEDURE: The patient is a 39-year-old male with multiple episodes of abdominal wall abscesses secondary to history of Crohn's with multiple surgeries, just not improving, seen on CAT scan to have a fluid collection just below the surface of the skin. FINDINGS: The patient had a purulent fluid collection, drained and packed. PROCEDURE NOTE: After informed consent was obtained, the patient in his ER bed sterilely prepped and draped in normal fashion. Local lidocaine was used to infiltrate the skin above this area as well as around it. Then, right to the midline scar using a #11 blade, made a stab incision approximately 2 cm incision was made, carried down through the skin into subcutaneous tissue. Immediately upon doing this, got out purulent fluid. This was cultured, swabbed, and sent to pathology then continued to express all of the purulent fluid, got out about 20 mL of fluid. At this point, then carefully debrided roughly with a 4 x 4 felt in, around this, did not feel any other pockets. At this point, then elected to pack it with quarter-inch iodoform packing. The patient tolerated the procedure. Area was cleaned and dried and a dressing placed. The patient will be sent home on IV antibiotics, told to change the packing daily and will follow up in my office. Job ID: [id number] DocumentID: [id number] Dictated Date: 08/28/2019 16:54:30 Drill Presser Date: 08/29/2019 00:16:06 Dictated By: RANDALL SIMMONS DO
== END 2019-08-28 17:16 | disposition home or self-care (01) ==
LOC: ER 09:53 → EDUNIT# 09:53 → ER 17:16
DX: L02.211 Cutaneous abscess of abdominal wall (principal); F17.290 Nicotine dependence, other tobacco product, uncomplicated; Z87.19 Personal history of other diseases of the digestive system
CPT/HCPCS: 10061; 36415; 74177; 80053; 83605; 85025; 86141; 87040; 96361; 96374; 96375; 96376

== ENCOUNTER 2019-09-23 09:34 | Emergency (ER) | payer BC ==
[~2019-09-23] VITALS: Ht 187.9 cm; Wt 72.7 kg
[~2019-09-23 09:34] MED LIST changes: +SULF-222 PO
[2019-09-23] MEDS ORDERED: oxyCODONE/APAP 10/325MG (PERCOCET 10) TABLET PO ONE (11:00)
--- NOTE | 2019-09-23 11:02 | ED Integumentary General ---
General Chief Complaint: Skin/Wound Problems Stated Complaint: ABSCESS ON STOMACH Source: patient Exam Limitations: no limitations History of Present Illness Date Seen by Provider: Sep 23, 2019 Time Seen by Provider: 10:57 Initial Comments He reports that he is here today for ongoing abdominal pain secondary to an abdominal wall abscess from suspected fistula and Crohn's disease. He had this opened the emergency room on August 28. He follows with surgeon Dr. Culp from [place] and Dr. Jackson from gastroenterology. He has since been referred to [facility]. He is on methotrexate and has been for 3 weeks but denies improvement. He is out of his hydrocodone but states it wasn't helping that much. He is currently on ciprofloxacin [address] culp.Follow up with [facility] is in november unless they have cancellations and he can be seen sooner. Timing/Duration: constant Severity: moderate Associated Symptoms: denies symptoms Allergies and Home Medications Allergies Coded Allergies: No Known Drug Allergies (Unverified , 11/04/16) Home Medications Ciprofloxacin HCl 500 Mg Tablet, 500 MG PO BID Prescribed by: ELDER KHAN on 08/02/19217 Hydrocodone Bit/Acetaminophen 1 Tab Tab, 1 EACH PO Q4-6HR PRN for PAIN-MODERATE Prescribed by: ELDER KHAN on 08/02/19217 Hydrocodone Bit/Acetaminophen 1 Tab Tab, 1 EACH PO Q6H PRN for PAIN-MODERATE Prescribed by: IRENE ROSALES on 08/28/19 1705 Metronidazole 500 Mg Tablet, 500 MG PO TID Prescribed by: ELDER KHAN on 08/02/19217 Oxycodone HCl/Acetaminophen 1 Each Tablet, 1 TAB PO Q6H PRN for PAIN-MODERATE Prescribed by: NGOC HATHAWAY on 09/23/19 1151 Sulfamethoxazole/Trimethoprim 1 Each Tablet, 1 EACH PO BID Prescribed by: IRENE ROSALES on 08/28/19 1657 Patient Home Medication List Home Medication List Reviewed: Yes Review of Systems Review of Systems Constitutional: see HPI EENTM: see HPI Respiratory: no symptoms reported Cardiovascular: no symptoms reported Gastrointestinal: abdominal pain Genitourinary: no symptoms reported Musculoskeletal: no symptoms reported Skin: no symptoms reported Psychiatric/Neurological: No Symptoms Reported Endocrine: No Symptoms Reported Hematologic/Lymphatic: No Symptoms Reported Past Ewhvceg-Waqurq-Bjnixw Hx Patient Social History Drug of Choice: POT Type Used: Cigars Recent Foreign Travel: No Contact w/Someone Who Travel: No Recent Hopitalizations: No Immunizations Up To Date Tetanus Booster (TDap): Less than 5yrs Seasonal Allergies Seasonal Allergies: No Past Medical History Surgeries: Yes (ILEOSTOMY 2018) Bowel Surgery Respiratory: No Cardiac: No Neurological: No Reproductive Disorders: No Genitourinary: No Gastrointestinal: Yes Crohns Disease Musculoskeletal: No Endocrine: No HEENT: No Cancer: No Psychosocial: No Integumentary: No Blood Disorders: No Family Medical History Heart Disease, Diabetes, Hypertension, Psychiatric Problems, Other Conditions/Hx Physical Exam Vital Signs Vital Signs - First Documented 09/23/19 09/23/19 10:47 12:23 Temp 36.7 Pulse 79 Resp 16 B/P (MAP) 142/108 (119) Pulse Ox 98 O2 Delivery Room Air Capillary Refill : General Appearance: WD/WN, no apparent distress HEENT: PERRL/EOMI, normal ENT inspection Neck: non-tender, full range of motion Respiratory: no respiratory distress, no accessory muscle use Gastrointestinal: normal bowel sounds, soft, other (there is an open wound infraumbilical, no drainage from this moment, this was from the incision and drainage done a couple of weeks ago. The open area is only about 1 craniocaudal length.) Extremities: normal range of motion, non-tender Neurologic/Psychiatric: alert, normal mood/affect, oriented x 3 Skin: normal color, warm/dry Skin Problem Character: abscess Progress/Results/Core Measures Results/Orders Lab Results Laboratory Tests Test 09/23/19 11:07 09/23/19 11:39 Range/Units Urine Color YELLOW Urine Clarity CLEAR Urine pH 7.5 5-9 Urine Specific [place] 1.015 L 1.016-1.022 Urine Protein NEGATIVE NEGATIVE Urine Glucose (UA) NEGATIVE NEGATIVE Urine Ketones NEGATIVE NEGATIVE Urine Nitrite NEGATIVE NEGATIVE Urine Bilirubin NEGATIVE NEGATIVE Urine Urobilinogen 0.2 < = 1.0 MG/DL Urine Leukocyte Esterase NEGATIVE NEGATIVE Urine RBC (Auto) NEGATIVE NEGATIVE Urine RBC NONE /HPF Urine WBC NONE /HPF Urine Squamous Epithelial Cells NONE /HPF Urine Crystals NONE /LPF Urine Bacteria NEGATIVE /HPF Urine Casts NONE /LPF Urine Mucus NEGATIVE /LPF Urine Culture Indicated NO White Blood Count 7.7 4.3-11.0 10^3/uL Red Blood Count 4.72 4.35-5.85 10^6/uL Hemoglobin 13.9 13.3-17.7 G/DL Hematocrit 43 40-54 % Mean Corpuscular Volume 90 80-99 FL Mean Corpuscular Hemoglobin 29 25-34 PG Mean Corpuscular Hemoglobin Concent 33 32-36 G/DL Red Cell Distribution Width 15.2 H 10.0-14.5 % Platelet Count 319 130-400 10^3/uL Mean Platelet Volume 9.6 7.4-10.4 FL Neutrophils (%) (Auto) 81 H 42-75 % Lymphocytes (%) (Auto) 12 12-44 % Monocytes (%) (Auto) 5 0-12 % Eosinophils (%) (Auto) 1 0-10 % Basophils (%) (Auto) 0 0-10 % Neutrophils # (Auto) 6.2 1.8-7.8 X 10^3 Lymphocytes # (Auto) 0.9 L 1.0-4.0 X 10^3 Monocytes # (Auto) 0.4 0.0-1.0 X 10^3 Eosinophils # (Auto) 0.1 0.0-0.3 10^3/uL Basophils # (Auto) 0.0 0.0-0.1 10^3/uL Sodium Level 139 135-145 MMOL/L Potassium Level 3.6 3.6-5.0 MMOL/L Chloride Level 105 98-107 MMOL/L Carbon Dioxide Level 22 21-32 MMOL/L Anion Gap 12 5-14 MMOL/L Blood Urea Nitrogen 6 L 7-18 MG/DL Creatinine 0.83 0.60-1.30 MG/DL Estimat Glomerular Filtration Rate > 60 BUN/Creatinine Ratio 7 Glucose Level 88 70-105 MG/DL Calcium Level 10.5 H 8.5-10.1 MG/DL Corrected Calcium 8.5-10.1 MG/DL Total Bilirubin 0.4 0.1-1.0 MG/DL Aspartate Amino Transf (AST/SGOT) 25 5-34 U/L Alanine Aminotransferase (ALT/SGPT) 24 0-55 U/L Alkaline Phosphatase 65 40-136 U/L Total Protein 8.2 6.4-8.2 GM/DL Albumin 4.6 H 3.2-4.5 GM/DL My Orders Orders - HATHAWAY,PETER J CEILING INSULATION BLOWER Cbc With Automated Diff (09/23/19 10:56) Comprehensive Metabolic Panel (09/23/19 10:56) Ua Culture If Indicated (09/23/19 10:56) Oxycodone/Acet 10/325mg Tablet (Percocet (09/23/19 11:00) Wound Culture (09/23/19 12:22) Medications Given in ED Current Medications Medications Dose Ordered Sig/Darryl Route Start Time Stop Time Status Last Admin Dose Admin Oxycodone/ Acetaminophen 1 tab ONCE ONCE PO 09/23/19 11:00 09/23/19 11:01 DC 09/23/19 11:31 1 TAB Vital Signs/I&O 09/23/19 09/23/19 10:47 12:23 Temp 36.7 36.8 Pulse 79 84 Resp 16 B/P (MAP) 142/108 (119) 115/103 (119) Pulse Ox 98 99 O2 Delivery Room Air Departure Impression Primary Impression: Abdominal wall fistula Disposition: HOME, SELF-CARE Condition: Stable Departure-Patient Inst. Decision time for Depature: 11:49 Referrals: NO,LOCAL PHYSICIAN (PCP/Family) Primary Care Physician Patient Instructions: Enterocutaneous Fistula (DC) Add. Discharge Instructions: 1. Follow-up with [facility] as scheduled 2. Return to ER for fevers or chills. All discharge instructions reviewed with patient and/or family. Voiced understanding. Scripts Oxycodone HCl/Acetaminophen (Percocet 7.5-325 mg Tablet) 1 Each Tablet 1 TAB PO Q6H PRN for PAIN-MODERATE MDD 4 TABS for 7 Days, #20 TAB Prov: NGOC HATHAWAY APRN 09/23/19 NGOC HATHAWAY APRN Sep 23, 2019 11:02 POS
[2019-09-23 11:16] LABS: BILIRUBIN,URINE NEGATIVE (NEGATIVE); CLARITY,URINE CLEAR; COLOR,URINE YELLOW; GLUCOSE, URINE (UA) NEGATIVE (NEGATIVE); KETONES,URINE NEGATIVE (NEGATIVE); LEUKOCYTE ESTERASE ,URINE NEGATIVE (NEGATIVE); NITRITE,URINE NEGATIVE (NEGATIVE); PH,URINE 7.5 (5-9); PROTEIN,URINE NEGATIVE (NEGATIVE)
[2019-09-23 11:24] LABS: BACTERIA,URINE NEGATIVE /HPF
[2019-09-23 11:46] LABS: BASOPHILS % (AUTO) 0 % (0-10); EOSINOPHILS # (AUTO) 0.1 10^3/uL (0.0-0.3); EOSINOPHILS % (AUTO) 1 % (0-10); HEMATOCRIT 43 % (40-54); HEMOGLOBIN 13.9 G/DL (13.3-17.7); LYMPHOCYTES # (AUTO) 0.9 X 10^3 (1.0-4.0); LYMPHOCYTES % (AUTO) 12 % (12-44); MEAN CORPUSCULAR HEMOGLOBIN 29 PG (25-34); MEAN CORPUSCULAR HGB CONC 33 G/DL (32-36); MEAN CORPUSCULAR VOLUME 90 FL (80-99); MEAN PLATELET VOLUME 9.6 FL (7.4-10.4); MONOCYTES # (AUTO) 0.4 X 10^3 (0.0-1.0); MONOCYTES % (AUTO) 5 % (0-12); NEUTROPHILS # (AUTO) 6.2 X 10^3 (1.8-7.8); NEUTROPHILS % (AUTO) 81 % (42-75); PLATELET COUNT 319 10^3/uL (130-400); RED CELL DISTRIBUTION WIDTH 15.2 % (10.0-14.5); WHITE BLOOD COUNT 7.7 10^3/uL (4.3-11.0)
[2019-09-23] MEDS ORDERED: OXYC1TAB16 PO (11:51)
[2019-09-23 12:09] LABS: ALANINE AMINOTRANSFERASE 24 U/L (0-55); ALBUMIN 4.6 GM/DL (3.2-4.5); ALKALINE PHOSPHATASE 65 U/L (40-136); BILIRUBIN,TOTAL 0.4 MG/DL (0.1-1.0); BUN/CREATININE RATIO 7; CALCIUM 10.5 MG/DL (8.5-10.1); CARBON DIOXIDE 22 MMOL/L (21-32); CHLORIDE 105 MMOL/L (98-107); CREATININE SERUM 0.83 MG/DL (0.60-1.30); GFR ESTIMATED > 60; GLUCOSE 88 MG/DL (70-105); POTASSIUM 3.6 MMOL/L (3.6-5.0); SODIUM 139 MMOL/L (135-145); TOTAL PROTEIN 8.2 GM/DL (6.4-8.2)
[2019-09-23 12:23] VITALS: BP 115/103
== END 2019-09-23 12:24 | disposition home or self-care (01) ==
LOC: EDUNIT# 09:34 → ER 09:35
DX: K63.2 Fistula of intestine (principal); Z87.19 Personal history of other diseases of the digestive system; Z82.49 Family history of ischemic heart disease and other diseases of the circulatory system
CPT/HCPCS: 36415; 80053; 81000; 85025; 87070; 87205; 99283

== ENCOUNTER 2019-10-23 12:54 | Emergency (ER) | payer BC ==
[~2019-10-23] VITALS: Ht 193 cm; Wt 69.6 kg
[~2019-10-23 12:54] MED LIST changes: +OXYC1TAB16 PO
[2019-10-23] MEDS ORDERED: cefTRIAXone FOR IV USE 1,000 MG in WATER (STERILE) FOR INJECTION 10 ML IV ONE (14:30)
[2019-10-23] MEDS ORDERED: LIDOCAINE 1% INJ 20 ML 20 ML VIAL INJ ONE (14:30)
[2019-10-23] MEDS ORDERED: fentaNYL INJECTION 100 MCG/2 ML AMP IVP ONE (14:30)
--- NOTE | 2019-10-23 14:34 | ED Integumentary General ---
General Chief Complaint: Skin/Wound Problems Stated Complaint: ABSCESS Nursing Triage Note: Pt reports having a hx of crohns and having an ileostomy. Pt reports ever since having surgery pt has had issue with chronic abscesses along incision line. Pt reports fever at home but was afebrile at time of ascess. Pt has appt at November 29. Source: patient Exam Limitations: no limitations History of Present Illness Date Seen by Provider: Oct 23, 2019 Time Seen by Provider: 14:17 Initial Comments Patient presents to ER by private conveyance with chief complaint last several days progressively worsening pain and swelling consistent with possible abscess versus fistula in the scar line. His abdomen. He has a history of Crohn's and ileostomy. He has another site that is healing up over the past month in the midline; this one more to the left lower abdomen. He has not started draining yet. He's had some subjective fevers and sweats at night but none during the day. He uses Tylenol for his pain with only modest relief. He says it is fine for the day but is hard to sleep at night. His last abscess was drained by Dr. sahu. He's had a CT scan recently showing possible fistula formation due to his Crohn's. He is working with his GI doctor at [facility] to switch up off of the methotrexate to a different anti-immunologic and explore more definitive care for his potential fistula. He says as soon as he gets one abdominal abscess healed up another one starts. He's having no nausea or vomiting. He is passing a normal complement of soft stool through his ileostomy although for the last day or so it has been a little less than usual because his appetite has been poor. He does not routinely use opiates. Allergies and Home Medications Allergies Coded Allergies: No Known Drug Allergies (Unverified , 11/04/16) Home Medications Ciprofloxacin HCl 500 Mg Tablet, 500 MG PO BID Prescribed by: ELDER KHAN on 08/02/19217 Hydrocodone Bit/Acetaminophen 1 Tab Tab, 1 EACH PO Q4-6HR PRN for PAIN-MODERATE Prescribed by: ELDER KHAN on 08/02/19217 Hydrocodone Bit/Acetaminophen 1 Tab Tab, 1 EACH PO Q6H PRN for PAIN-MODERATE Prescribed by: IRENE ROSALES on 08/28/19 1705 Hydrocodone Bit/Acetaminophen 1 Tab Tab, 1 EACH PO Q4-6HR PRN for PAIN-MODERATE Prescribed by: AMANDA WALL on 10/23/19 1518 Metronidazole 500 Mg Tablet, 500 MG PO TID Prescribed by: ELDER KHAN on 08/02/19 0218 Ondansetron 4 Mg Tab.rapdis, 4 MG PO Q6H PRN for NAUSEA/VOMITING Prescribed by: AMANDA WALL on 10/23/19 1518 Oxycodone HCl/Acetaminophen 1 Each Tablet, 1 TAB PO Q6H PRN for PAIN-MODERATE Prescribed by: NGOC HATHAWAY on 09/23/19 1151 Sulfamethoxazole/Trimethoprim 1 Each Tablet, 1 EACH PO BID Prescribed by: IRENE ROSALES on 08/28/19 1657 Sulfamethoxazole/Trimethoprim 1 Each Tablet, 1 EACH PO BID Prescribed by: AMANDA WALL on 10/23/19 151 Patient Home Medication List Home Medication List Reviewed: Yes Review of Systems Review of Systems Constitutional: No chills, No diaphoresis EENTM: No ear discharge, No ear pain Respiratory: No cough, No short of breath Cardiovascular: No edema, No syncope Gastrointestinal: see HPI; No abdominal pain, No constipation, No diarrhea, No nausea, No vomiting Genitourinary: No discharge, No dysuria Musculoskeletal: No back pain, No joint pain Psychiatric/Neurological: Denies Anxiety, Denies Depressed Past Prlseyx-Rsczrp-Xmwrku Hx Patient Social History Alcohol Use: Denies Use Recreational Drug Use: No Drug of Choice: POT Smoking Status: Former Smoker Type Used: Cigars 2nd Hand Smoke Exposure: No Recent Foreign Travel: No Contact w/Someone Who Travel: No Recent Infectious Disease Expo: No Recent Hopitalizations: No Immunizations Up To Date Tetanus Booster (TDap): Less than 5yrs Seasonal Allergies Seasonal Allergies: No Past Medical History Surgeries: Yes (ILEOSTOMY 2018) Abdominal, Bowel Surgery Respiratory: No Cardiac: No Neurological: No Reproductive Disorders: No Genitourinary: No Gastrointestinal: Yes Crohns Disease Musculoskeletal: No Endocrine: No HEENT: No Cancer: No Psychosocial: No Integumentary: No Blood Disorders: No Family Medical History Heart Disease, Diabetes, Hypertension, Psychiatric Problems, Other Conditions/Hx Physical Exam Vital Signs Vital Signs - First Documented 10/23/19 13:35 Temp 36.7 Pulse 85 Resp 15 B/P (MAP) 137/94 (108) Pulse Ox 100 O2 Delivery Room Air Capillary Refill : Less Than 3 Seconds General Appearance: WD/WN, mild distress HEENT: PERRL/EOMI, pharynx normal Neck: non-tender, full range of motion Cardiovascular: normal peripheral pulses, regular rate, rhythm Respiratory: no respiratory distress, no accessory muscle use Gastrointestinal: normal bowel sounds, soft, tenderness (in the old well-healed incision on the left lower quadrant there is white, pointing without discharge and mild erythema with no induration but fluctuance is palpable.) Neurologic/Psychiatric: alert, normal mood/affect, oriented x 3 Skin: normal color, warm/dry Procedures/Interventions I&D : Site: left lower abdomen Blade Size: 11 I & D Procedure: betadine prep (alcohol), sterile dressing applied Progress Site was thoroughly cleaned with alcohol and then infiltrated with 2 cc of 1% lidocaine without epinephrine. The patient had good anesthesia so we made a 0.7 x 0.7 cross brown incision using the 11 blade scalpel. We expressed approximately 5 cc of. Material. We used a sterile culturette to obtain a wound culture. We then used a cotton tip probe, sterile to break up loculations and explored the wound. We did find a tract that went at least 1 cm deep that we stopped follo wing it after that suspecting that this represents a fistula. Patient tolerated procedure well. We then flushed the wound with 30 cc of normal saline and covered with dry, sterile gauze. Progress/Results/Core Measures Results/Orders Lab Results Laboratory Tests Test 10/23/19 14:48 Range/Units White Blood Count 8.7 4.3-11.0 10^3/uL Red Blood Count 5.07 4.35-5.85 10^6/uL Hemoglobin 15.2 13.3-17.7 G/DL Hematocrit 46 40-54 % Mean Corpuscular Volume 91 80-99 FL Mean Corpuscular Hemoglobin 30 25-34 PG Mean Corpuscular Hemoglobin Concent 33 32-36 G/DL Red Cell Distribution Width 15.2 H 10.0-14.5 % Platelet Count 319 130-400 10^3/uL Mean Platelet Volume 10.0 7.4-10.4 FL Neutrophils (%) (Auto) 78 H 42-75 % Lymphocytes (%) (Auto) 14 12-44 % Monocytes (%) (Auto) 8 0-12 % Eosinophils (%) (Auto) 1 0-10 % Basophils (%) (Auto) 0 0-10 % Neutrophils # (Auto) 6.8 1.8-7.8 X 10^3 Lymphocytes # (Auto) 1.2 1.0-4.0 X 10^3 Monocytes # (Auto) 0.7 0.0-1.0 X 10^3 Eosinophils # (Auto) 0.1 0.0-0.3 10^3/uL Basophils # (Auto) 0.0 0.0-0.1 10^3/uL Sodium Level 138 135-145 MMOL/L Potassium Level 3.6 3.6-5.0 MMOL/L Chloride Level 103 98-107 MMOL/L Carbon Dioxide Level 24 21-32 MMOL/L Anion Gap 11 5-14 MMOL/L Blood Urea Nitrogen 8 7-18 MG/DL Creatinine 1.13 0.60-1.30 MG/DL Estimat Glomerular Filtration Rate > 60 BUN/Creatinine Ratio 7 Glucose Level 81 70-105 MG/DL Calcium Level 10.5 H 8.5-10.1 MG/DL Corrected Calcium 8.5-10.1 MG/DL Total Bilirubin 0.4 0.1-1.0 MG/DL Aspartate Amino Transf (AST/SGOT) 21 5-34 U/L Alanine Aminotransferase (ALT/SGPT) 19 0-55 U/L Alkaline Phosphatase 72 40-136 U/L Total Protein 8.8 H 6.4-8.2 GM/DL Albumin 4.9 H 3.2-4.5 GM/DL My Orders Orders - MAANDA WALL Fentanyl Injection (Sublimaze Injection (10/23/19 14:30) Cbc With Automated Diff (10/23/19 14:26) Ed Iv/Invasive Line Start (10/23/19 14:26) Comprehensive Metabolic Panel (10/23/19 14:26) Lidocaine 1% Inj 20 Ml (Xylocaine 1% Inj (10/23/19 14:30) Ceftriaxone For Iv Use (Rocephin For I (10/23/19 14:30) Wound Culture (10/23/19 14:35) Blood Culture (10/23/19 14:35) Medications Given in ED Current Medications Medications Dose Ordered Sig/Darryl Route Start Time Stop Time Status Last Admin Dose Admin Ceftriaxone Sodium 1000 mg/ Sterile Water 10 ml @ 200 mls/hr ONCE ONCE IV 10/23/19 14:30 10/23/19 14:32 DC 10/23/19 15:22 200 MLS/HR Fentanyl Citrate 50 mcg ONCE ONCE IVP 10/23/19 14:30 10/23/19 14:31 DC 10/23/19 14:56 50 MCG Lidocaine HCl 20 ml ONCE ONCE INJ 10/23/19 14:30 10/23/19 14:31 DC 10/23/19 15:22 20 ML Vital Signs/I&O 10/23/19 13:35 Temp 36.7 Pulse 85 Resp 15 B/P (MAP) 137/94 (108) Pulse Ox 100 O2 Delivery Room Air Blood Pressure Mean: 108 Progress Progress Note : Time: 14:32 Progress Note Abscess versus recurrent fistula tract secondary to Crohn's. We'll give him a gram or Rocephin. He has a history of subjective fevers but he has aseptic vital signs presently. He is using Tylenol. We'll give 50 g of fentanyl and use lidocaine to javier, drain and get a culture of the wound. He does not appear in any moderate to severe distress acutely however we'll check some labs. No mesenteric signs. We have offered imaging and a set him up with surgery for possible drain placement versus I&D here in the ER and follow-up with his GI doctor and he would prefer the latter. He has a CT of the abdomen and pelvis showing a subcutaneous abscess less than 2 months ago that is now status post drainage. Departure Impression Primary Impression: Abdominal wall abscess Additional Impressions: Fistula Crohn's disease Qualified Codes: K50.919 - Crohn's disease, unspecified, with unspecified complications Disposition: 01 HOME, SELF-CARE Condition: Improved Departure-Patient Inst. Decision time for Depature: 15:30 Referrals: NO,LOCAL PHYSICIAN (PCP/Family) Primary Care Physician Patient Instructions: Enteric (Including Enterocutaneous) Fistula, Abscess Incision and Drainage (DC) Add. Discharge Instructions: Keep the wound clean with regular soap and water. Keep the wound dressed with a dry gauze bandage changed as often as it becomes soiled or at least daily until it stops draining. Bactrim one tablet twice daily for the next 7 days. Follow-up with your GI doctors. All discharge instructions reviewed with patient and/or family. Voiced understanding. Scripts Ondansetron (Ondansetron Odt) 4 Mg Tab.rapdis 4 MG PO Q6H PRN for NAUSEA/VOMITING, #8 TAB 0 Refills Prov: AMANDA WALL 10/23/19 Hydrocodone Bit/Acetaminophen (Hydrocodone/Acetaminophen 5/325mg Tablet) 1 Tab Tab 1 EACH PO Q4-6HR PRN for PAIN-MODERATE MDD 10 for 3 Days, #10 TAB 0 Refills Prov: AMANDA WALL 10/23/19 Sulfamethoxazole/Trimethoprim (Bactrim Ds Tablet) 1 Each Tablet 1 EACH PO BID for 7 Days, #14 TAB 0 Refills Prov: AMANDA WALL 10/23/19 AMANDA WALL Oct 23, 2019 14:34
[2019-10-23 15:01] LABS: BASOPHILS % (AUTO) 0 % (0-10); EOSINOPHILS # (AUTO) 0.1 10^3/uL (0.0-0.3); EOSINOPHILS % (AUTO) 1 % (0-10); HEMATOCRIT 46 % (40-54); HEMOGLOBIN 15.2 G/DL (13.3-17.7); LYMPHOCYTES # (AUTO) 1.2 X 10^3 (1.0-4.0); LYMPHOCYTES % (AUTO) 14 % (12-44); MEAN CORPUSCULAR HEMOGLOBIN 30 PG (25-34); MEAN CORPUSCULAR HGB CONC 33 G/DL (32-36); MEAN CORPUSCULAR VOLUME 91 FL (80-99); MONOCYTES # (AUTO) 0.7 X 10^3 (0.0-1.0); MONOCYTES % (AUTO) 8 % (0-12); NEUTROPHILS # (AUTO) 6.8 X 10^3 (1.8-7.8); NEUTROPHILS % (AUTO) 78 % (42-75); PLATELET COUNT 319 10^3/uL (130-400); RED CELL DISTRIBUTION WIDTH 15.2 % (10.0-14.5); WHITE BLOOD COUNT 8.7 10^3/uL (4.3-11.0)
[2019-10-23] MEDS ORDERED: ONDA4TAB11 PO (15:18)
[2019-10-23] MEDS ORDERED: ACHD5005 PO (15:18)
[2019-10-23] MEDS ORDERED: SULF1TAB35 PO (15:18)
--- NOTE | 2019-10-23 15:19 | NUR ---
2ND BLOOD CULTURE DRAWN BY LAB
[2019-10-23 15:20] LABS: ALANINE AMINOTRANSFERASE 19 U/L (0-55); ALBUMIN 4.9 GM/DL (3.2-4.5); ALKALINE PHOSPHATASE 72 U/L (40-136); BILIRUBIN,TOTAL 0.4 MG/DL (0.1-1.0); BUN/CREATININE RATIO 7; CALCIUM 10.5 MG/DL (8.5-10.1); CARBON DIOXIDE 24 MMOL/L (21-32); CHLORIDE 103 MMOL/L (98-107); CREATININE SERUM 1.13 MG/DL (0.60-1.30); GFR ESTIMATED > 60; GLUCOSE 81 MG/DL (70-105); POTASSIUM 3.6 MMOL/L (3.6-5.0); SODIUM 138 MMOL/L (135-145); TOTAL PROTEIN 8.8 GM/DL (6.4-8.2)
[2019-10-23 15:40] VITALS: BP 127/81
== END 2019-10-23 15:45 | disposition home or self-care (01) ==
LOC: EDUNIT# 12:54 → ER 12:55
DX: K50.914 Crohn's disease, unspecified, with abscess (principal); K50.913 Crohn's disease, unspecified, with fistula; Z87.891 Personal history of nicotine dependence; Z93.2 Ileostomy status; Z82.49 Family history of ischemic heart disease and other diseases of the circulatory system
CPT/HCPCS: 36415; 80053; 85025; 87040; 87070; 87205; 96374; 96375

== ENCOUNTER 2019-11-22 08:38 | Emergency (ER) | payer BC ==
[~2019-11-22] VITALS: Ht 193 cm; Wt 70.0 kg
[~2019-11-22 08:38] MED LIST changes: +ONDA4TAB11 PO
[2019-11-22 10:35] LABS: BASOPHILS % (AUTO) 0 % (0-10); EOSINOPHILS # (AUTO) 0.6 10^3/uL (0.0-0.3); EOSINOPHILS % (AUTO) 8 % (0-10); HEMATOCRIT 44 % (40-54); HEMOGLOBIN 14.6 G/DL (13.3-17.7); LYMPHOCYTES # (AUTO) 1.1 X 10^3 (1.0-4.0); LYMPHOCYTES % (AUTO) 15 % (12-44); MEAN CORPUSCULAR HEMOGLOBIN 31 PG (25-34); MEAN CORPUSCULAR HGB CONC 33 G/DL (32-36); MEAN CORPUSCULAR VOLUME 91 FL (80-99); MEAN PLATELET VOLUME 11.6 FL (7.4-10.4); MONOCYTES # (AUTO) 0.6 X 10^3 (0.0-1.0); MONOCYTES % (AUTO) 8 % (0-12); NEUTROPHILS # (AUTO) 5.1 X 10^3 (1.8-7.8); NEUTROPHILS % (AUTO) 69 % (42-75); PLATELET COUNT 247 10^3/uL (130-400); RED CELL DISTRIBUTION WIDTH 14.8 % (10.0-14.5); WHITE BLOOD COUNT 7.3 10^3/uL (4.3-11.0)
[2019-11-22 10:38] LABS: PROTHROMBIN TIME PATIENT 13.1 SEC (12.2-14.7)
[2019-11-22] MEDS ORDERED: ONDANSETRON 4 MG/2 ML (SDV) Z0FRAN IVP ONE (10:45)
[2019-11-22] MEDS ORDERED: HYDROmorphone 2 MG/ML VIAL (DILAUDID) IV ONE (10:45)
[2019-11-22 10:46] LABS: ALANINE AMINOTRANSFERASE 30 U/L (0-55); ALBUMIN 4.3 GM/DL (3.2-4.5); ALKALINE PHOSPHATASE 60 U/L (40-136); BILIRUBIN,TOTAL 0.6 MG/DL (0.1-1.0); BUN/CREATININE RATIO 6; CALCIUM 9.7 MG/DL (8.5-10.1); CARBON DIOXIDE 23 MMOL/L (21-32); CHLORIDE 102 MMOL/L (98-107); CREATININE SERUM 1.08 MG/DL (0.60-1.30); GFR ESTIMATED > 60; GLUCOSE 81 MG/DL (70-105); POTASSIUM 3.9 MMOL/L (3.6-5.0); SODIUM 137 MMOL/L (135-145); TOTAL PROTEIN 8.1 GM/DL (6.4-8.2)
--- NOTE | 2019-11-22 10:58 | ED Integumentary General ---
General Chief Complaint: Skin/Wound Problems Stated Complaint: STOMACH ABSCESS Nursing Triage Note: PT STATES HX OF CROHNS, COLOSTOMY CHANGED TO ILLEOSTOMY IN APRIL 2019, HAS ABSCESS ON ABD THAT STARTED IN JUL/AUG TIME FRAME. HAS HAD TO HAVE IT DRAINED ABOUT 10 TIMES. TEMP 37.2 NO CURRENT ABX. Source: patient Exam Limitations: no limitations (IRENE ROSALES MD) History of Present Illness Date Seen by Provider: Nov 22, 2019 Time Seen by Provider: 10:33 Initial Comments Here with return of abscess to the lower abdomen. He has ileostomy to the right lower quadrant and has had multiple abscesses afterwards. There is question of fistula. Subjective fever and positive nausea and pain over the last few days. Has follow-up at on 11/29/19 for evaluation for this abscess and concerns of fistula. Does have Crohn's disease and is on a variety of medicines. Seen last month for the same and had I&D and initiated on antibiotics. I until a few days ago. Timing/Duration: getting worse, other (. Days ago) Severity: moderate Location: torso Associated Symptoms: change in skin texture, fever; No rash (IRENE ROSALES MD) Allergies and Home Medications Allergies Coded Allergies: No Known Drug Allergies (Unverified , 11/04/16) Home Medications Ciprofloxacin HCl 500 Mg Tablet, 500 MG PO BID Prescribed by: ELDER KHAN on 08/02/19217 Hydrocodone Bit/Acetaminophen 1 Tab Tab, 1 EACH PO Q4-6HR PRN for PAIN-MODERATE Prescribed by: ELDER KHAN on 08/02/19217 Hydrocodone Bit/Acetaminophen 1 Tab Tab, 1 EACH PO Q6H PRN for PAIN-MODERATE Prescribed by: IRENE ROSALES on 08/28/19 1705 Hydrocodone Bit/Acetaminophen 1 Tab Tab, 1 EACH PO Q4-6HR PRN for PAIN-MODERATE Prescribed by: AMANDA WALL on 10/23/19 151 Metronidazole 500 Mg Tablet, 500 MG PO TID Prescribed by: ELDER KHAN on 08/02/19217 Ondansetron 4 Mg Tab.rapdis, 4 MG PO Q6H PRN for NAUSEA/VOMITING Prescribed by: AMANDA WALL on 10/23/19 1518 Oxycodone HCl/Acetaminophen 1 Each Tablet, 1 TAB PO Q6H PRN for PAIN-MODERATE Prescribed by: NGOC HATHAWAY on 09/23/19 1151 Sulfamethoxazole/Trimethoprim 1 Each Tablet, 1 EACH PO BID Prescribed by: IRENE ROSALES on 08/28/19 1657 Sulfamethoxazole/Trimethoprim 1 Each Tablet, 1 EACH PO BID Prescribed by: AMANDA WALL on 10/23/19 1518 Patient Home Medication List Home Medication List Reviewed: Yes (IRENE ROSALES MD) Review of Systems Review of Systems Constitutional: No chills; fever EENTM: no symptoms reported Respiratory: no symptoms reported Cardiovascular: no symptoms reported ([facility] on her) Gastrointestinal: abdominal pain, nausea; No vomiting Genitourinary: no symptoms reported Musculoskeletal: no symptoms reported Skin: see HPI, lesions Psychiatric/Neurological: No Symptoms Reported (IRENE ROSALES MD) All Other Systems Reviewed Negative Unless Noted: Yes (IRENE ROSALES MD) Past Jdzkyhz-Bihlfw-Uockbp Hx Past Med/Social Hx: Reviewed Nursing Past Med/Soc Hx (she is anxious when) (IRENE ROSALES MD) Patient Social History Alcohol Use: Denies Use Recreational Drug Use: Yes Drug of Choice: POT Smoking Status: Former Smoker Type Used: Cigars 2nd Hand Smoke Exposure: No Recent Foreign Travel: No Contact w/Someone Who Travel: No Recent Infectious Disease Expo: No Recent Hopitalizations: No Physical Abuse: No Sexual Abuse: No Mistreated: No Fear: No (IRENE ROSALES MD) Immunizations Up To Date Tetanus Booster (TDap): Less than 5yrs Date of Influenza Vaccine: Aug 02, 2019 (IRENE ROSALES MD) Seasonal Allergies Seasonal Allergies: No (IRENE ROSALES MD) Past Medical History Surgeries: Yes (ILEOSTOMY 2018) Abdominal, Bowel Surgery Respiratory: No Cardiac: No Neurological: No Reproductive Disorders: No Genitourinary: No Gastrointestinal: Yes Crohns Disease Musculoskeletal: No Endocrine: No HEENT: No Cancer: No Psychosocial: No Integumentary: No Blood Disorders: No (IRENE ROSALES MD) Family Medical History Reviewed Nursing Family Hx (IRENE ROSALES MD) Heart Disease, Diabetes, Hypertension, Psychiatric Problems, Other Conditions/Hx (IRENE ROSALES MD) Physical Exam Vital Signs Vital Signs - First Documented 11/22/19 08:46 Temp 37.2 Pulse 93 Resp 18 B/P (MAP) 140/95 (110) Pulse Ox 100 O2 Delivery Room Air (NGOC HATHAWAY APRN) Vital Signs Capillary Refill : Less Than 3 Seconds (IRENE ROSALES MD) General Appearance: WD/WN, no apparent distress HEENT: PERRL/EOMI, pharynx normal Cardiovascular: regular rate, rhythm, no murmur Respiratory: lungs clear, normal breath sounds Gastrointestinal: soft, tenderness (low abdomen. Midline with concerns of abscess.) Back: normal inspection, no CVA tenderness, no vertebral tenderness Extremities: non-tender, normal inspection Neurologic/Psychiatric: alert, oriented x 3 Skin: warm/dry; No rash Skin Problem Location: torso (anterior low abdomen) Skin Problem Character: abscess, erythema, tenderness, other (2 x 4 cm area of fluctuance/induration to the low abdomen at midline and moving towards the left) (IRENE ROSALES MD) Procedures/Interventions I&D : Blade Size: 11 Progress Abscess to the left of midline suprapubic with fluctuant thin overlying skin anesthetized with 1% lidocaine with epinephrine. Small 1/2-1 cm incision made with 11 blade scalpel. Foul-smelling purulent material expressed. Culture collected and sent to lab. Wound covered with gauze. (NGOC HATHAWAY APRN) Progress/Results/Core Measures Results/Orders Lab Results Laboratory Tests Test 11/22/19 09:30 11/22/19 11:00 Range/Units White Blood Count 7.3 4.3-11.0 10^3/uL Red Blood Count 4.79 4.35-5.85 10^6/uL Hemoglobin 14.6 13.3-17.7 G/DL Hematocrit 44 40-54 % Mean Corpuscular Volume 91 80-99 FL Mean Corpuscular Hemoglobin 31 25-34 PG Mean Corpuscular Hemoglobin Concent 33 32-36 G/DL Red Cell Distribution Width 14.8 H 10.0-14.5 % Platelet Count 247 130-400 10^3/uL Mean Platelet Volume 11.6 H 7.4-10.4 FL Neutrophils (%) (Auto) 69 42-75 % Lymphocytes (%) (Auto) 15 12-44 % Monocytes (%) (Auto) 8 0-12 % Eosinophils (%) (Auto) 8 0-10 % Basophils (%) (Auto) 0 0-10 % Neutrophils # (Auto) 5.1 1.8-7.8 X 10^3 Lymphocytes # (Auto) 1.1 1.0-4.0 X 10^3 Monocytes # (Auto) 0.6 0.0-1.0 X 10^3 Eosinophils # (Auto) 0.6 H 0.0-0.3 10^3/uL Basophils # (Auto) 0.0 0.0-0.1 10^3/uL Prothrombin Time 13.1 12.2-14.7 SEC INR Comment 1.0 0.8-1.4 Activated Partial Thromboplast Time 30 24-35 SEC Sodium Level 137 135-145 MMOL/L Potassium Level 3.9 3.6-5.0 MMOL/L Chloride Level 102 98-107 MMOL/L Carbon Dioxide Level 23 21-32 MMOL/L Anion Gap 12 5-14 MMOL/L Blood Urea Nitrogen 7 7-18 MG/DL Creatinine 1.08 0.60-1.30 MG/DL Estimat Glomerular Filtration Rate > 60 BUN/Creatinine Ratio 6 Glucose Level 81 70-105 MG/DL Calcium Level 9.7 8.5-10.1 MG/DL Corrected Calcium 9.5 8.5-10.1 MG/DL Total Bilirubin 0.6 0.1-1.0 MG/DL Aspartate Amino Transf (AST/SGOT) 47 H 5-34 U/L Alanine Aminotransferase (ALT/SGPT) 30 0-55 U/L Alkaline Phosphatase 60 40-136 U/L Total Protein 8.1 6.4-8.2 GM/DL Albumin 4.3 3.2-4.5 GM/DL (NGOC HATHAWAY APRN) Vital Signs/I&O 11/22/19 08:46 Temp 37.2 Pulse 93 Resp 18 B/P (MAP) 140/95 (110) Pulse Ox 100 O2 Delivery Room Air (NGOC HATHAWAY APRN) Blood Pressure Mean: 110 Progress Progress Note : Progress Note Seen and evaluated. Reviewed previous visits including CT scan. Patient has had previous I&D and he states that is quite helpful. Dilaudid 0.5 mg IV and Zofran 4 mg IV ordered. Monitor patient. 1139: Improved after I&D performed by Ngoc Hathaway APRN. Discharged home with return precautions. Patient verbalize understanding instructions and agreement with plan. (IRENE ROSALES MD) Departure Impression Primary Impression: Intra-abdominal abscess Disposition: HOME, SELF-CARE Condition: Stable Departure-Patient Inst. Decision time for Depature: 11:40 (IRENE ROSALES MD) Referrals: NO,LOCAL PHYSICIAN (PCP/Family) Primary Care Physician Patient Instructions: Wound Incision and Drainage (DC) Add. Discharge Instructions: All discharge instructions reviewed with patient and/or family. Voiced understanding. Keep appointment as scheduled on the . Return for worse pain, fever, vomiting, weakness, breathing problems or other concerns as needed. Take medications as directed. Scripts Ondansetron (Ondansetron Odt) 4 Mg Tab.rapdis 4 MG PO Q6H PRN for NAUSEA/VOMITING, #8 TAB 0 Refills Prov: IRENE ROSALES MD 11/22/19 Sulfamethoxazole/Trimethoprim (Bactrim Ds Tablet) 1 Each Tablet 1 EACH PO BID, #14 TAB 0 Refills Prov: IRENE ROSALES MD 11/22/19 Hydrocodone Bit/Acetaminophen (Hydrocodone/Acetaminophen 5/325mg Tablet) 1 Tab Tab 1 EACH PO Q4-6HR PRN for PAIN-MODERATE MDD 10 for 3 Days, #10 TAB 0 Refills Prov: IRENE ROSALES MD 11/22/19 IRENE ROSALES MD Nov 22, 2019 10:57 NGOC HATHAWAY APRN Nov 22, 2019 11:13
[2019-11-22 11:12] LABS: BILIRUBIN,URINE NEGATIVE (NEGATIVE); CLARITY,URINE CLEAR; COLOR,URINE YELLOW; GLUCOSE, URINE (UA) NEGATIVE (NEGATIVE); KETONES,URINE NEGATIVE (NEGATIVE); LEUKOCYTE ESTERASE ,URINE NEGATIVE (NEGATIVE); NITRITE,URINE NEGATIVE (NEGATIVE); PROTEIN,URINE 1+ (NEGATIVE)
[2019-11-22 11:19] LABS: BACTERIA,URINE NEGATIVE /HPF; SQUAMOUS EPITHELIAL CELL,UR RARE /HPF
--- NOTE | 2019-11-22 11:20 | Diagnostic Imaging Report ---
INDICATION: Crohn's disease. TIME OF EXAM: 11:08 a.m. COMPARISON: No prior studies are available for comparison. The heart size is normal. The pulmonary vascularity is unremarkable. The lungs are clear. No infiltrate, effusion or pneumothorax is detected. IMPRESSION: No acute cardiopulmonary process is detected. Dictated by: Dictated on workstation # [id number]
[2019-11-22] MEDS ORDERED: ACHD5005 PO (11:42)
[2019-11-22] MEDS ORDERED: SULF1TAB35 PO (11:42)
[2019-11-22] MEDS ORDERED: ONDA4TAB11 PO (11:43)
[2019-11-22 11:51] VITALS: BP 118/85
== END 2019-11-22 11:51 | disposition home or self-care (01) ==
LOC: EDUNIT# 08:38 → ER 08:39
DX: K65.1 Peritoneal abscess (principal); K50.90 Crohn's disease, unspecified, without complications; Z93.2 Ileostomy status; Z87.891 Personal history of nicotine dependence; Z82.49 Family history of ischemic heart disease and other diseases of the circulatory system
CPT/HCPCS: 36415; 71045; 80053; 81000; 83605; 85025; 85610; 85730; 87040; 87070; 87088; 87205

== ENCOUNTER 2020-05-14 15:04 | Emergency (ER) | payer BC ==
[~2020-05-14] VITALS: Ht 187 cm; Wt 34.0 kg
[~2020-05-14 15:04] MED LIST changes: +ACHYD1T; -HYDR-3820
--- NOTE | 2020-05-14 16:26 | ED Integumentary General ---
General Chief Complaint: Skin/Wound Problems Stated Complaint: ABSCESS ON ABD Nursing Triage Note: AMB TO ROOM REPORTS HAS ILEOSTOMY FOR PAST YEAR HAS BEEN GETTING ABSCESS NEST TO OLD INSCISION LINE FOR PAST YEAR. HAS BEEN TRYING TO I&D THEM HIMSELF BECAUSE HE DID NOT WANT TO COME TO ER. LAST ONE HE HAD WAS IN DECEMBER. Source: patient Exam Limitations: no limitations History of Present Illness Date Seen by Provider: May 14, 2020 Time Seen by Provider: 15:58 Initial Comments Patient has ER by private conveyance with chief complaint of an abscess in his midline abdominal scar. He gets these about every 6 months he says. He had original surgery to have part of his bowel removed secondary to Crohn's. He has an ileostomy. The stool output has been normal with no blood in it. He's not having any fevers chills cough shortness of breath nausea vomiting or difficulty urinating. He had follow-up at to have a retained suture removed that they thought was the nidus for his repeat abscesses. Since the global pandemic happened has put off having that exploratory surgery. He does not follow with a primary care doctor locally. Allergies and Home Medications Allergies Coded Allergies: No Known Drug Allergies (Unverified , 11/04/16) Home Medications Ciprofloxacin HCl 500 Mg Tablet, 500 MG PO BID Prescribed by: ELDER KHAN on 08/02/19217 Hydrocodone Bit/Acetaminophen 1 Tab Tab, 1 EACH PO Q4-6HR PRN for PAIN-MODERATE Prescribed by: ELDER KHAN on 08/02/19217 Hydrocodone Bit/Acetaminophen 1 Tab Tab, 1 EACH PO Q6H PRN for PAIN-MODERATE Prescribed by: IRENE ROSALES on 08/28/19 1705 Hydrocodone Bit/Acetaminophen 1 Tab Tab, 1 EACH PO Q4-6HR PRN for PAIN-MODERATE Prescribed by: AMANDA WALL on 10/23/19 1518 Hydrocodone Bit/Acetaminophen 1 Tab Tab, 1 EACH PO Q4-6HR PRN for PAIN-MODERATE Prescribed by: IRENE ROSALES on 11/22/19 1142 Metronidazole 500 Mg Tablet, 500 MG PO TID Prescribed by: ELDER KAHN on 08/02/19217 Ondansetron 4 Mg Tab.rapdis, 4 MG PO Q6H PRN for NAUSEA/VOMITING Prescribed by: AMANDA WALL on 10/23/19 1518 Ondansetron 4 Mg Tab.rapdis, 4 MG PO Q6H PRN for NAUSEA/VOMITING Prescribed by: IRENE ROSALES on 11/22/19 1143 Oxycodone HCl/Acetaminophen 1 Each Tablet, 1 TAB PO Q6H PRN for PAIN-MODERATE Prescribed by: NGOC HATHAWAY on 09/23/19 1151 Sulfamethoxazole/Trimethoprim 1 Each Tablet, 1 EACH PO BID Prescribed by: IRENE ROSALES on 08/28/19 1657 Sulfamethoxazole/Trimethoprim 1 Each Tablet, 1 EACH PO BID Prescribed by: AMANDA WALL on 10/23/19 1518 Sulfamethoxazole/Trimethoprim 1 Each Tablet, 1 EACH PO BID Prescribed by: IRENE ROSALES on 11/22/19 1142 Patient Home Medication List Home Medication List Reviewed: Yes Review of Systems Review of Systems Constitutional: No chills, No fever EENTM: No ear discharge Respiratory: No cough, No short of breath Cardiovascular: No chest pain, No edema Gastrointestinal: No constipation, No diarrhea, No nausea Genitourinary: No discharge, No dysuria Musculoskeletal: No back pain, No joint pain Skin: No pruritus, No rash All Other Systems Reviewed Negative Unless Noted: Yes Past Qavdesc-Vvufng-Svkoim Hx Patient Social History Alcohol Use: Denies Use Recreational Drug Use: Yes Drug of Choice: POT Smoking Status: Former Smoker Type Used: Cigars 2nd Hand Smoke Exposure: No Recent Foreign Travel: No Contact w/Someone Who Travel: No Recent Infectious Disease Expo: No Recent Hopitalizations: No Immunizations Up To Date Tetanus Booster (TDap): Less than 5yrs Date of Influenza Vaccine: Aug 02, 2019 Seasonal Allergies Seasonal Allergies: No Past Medical History Surgeries: Yes (ILEOSTOMY 2018) Abdominal, Bowel Surgery Respiratory: No Cardiac: No Neurological: No Reproductive Disorders: No Genitourinary: No Gastrointestinal: Yes Crohns Disease Musculoskeletal: No Endocrine: No HEENT: No Cancer: No Psychosocial: No Integumentary: No Blood Disorders: No Family Medical History Heart Disease, Diabetes, Hypertension, Psychiatric Problems, Other Conditions/Hx Physical Exam Vital Signs Vital Signs - First Documented 05/14/20 15:08 Temp 36.9 Pulse 90 Resp 18 B/P (MAP) 127/82 (97) Pulse Ox 97 O2 Delivery Room Air Capillary Refill : Less Than 3 Seconds General Appearance: WD/WN, no apparent distress HEENT: PERRL/EOMI, pharynx normal Neck: full range of motion, normal inspection Cardiovascular: normal peripheral pulses, regular rate, rhythm Respiratory: no respiratory distress, no accessory muscle use Gastrointestinal: normal bowel sounds, non tender, soft Neurologic/Psychiatric: alert, normal mood/affect, oriented x 3 Skin: normal color, warm/dry Procedures/Interventions I&D : Blade Size: 11 I & D Procedure: betadine prep Progress Infiltrated the skin with 1% lidocaine. When the skin was anesthetized we made a 3 x 3 mm cross brown incision and expressed out about 30-40 cc of thin, purulent material. Patient tolerated procedure well. Progress/Results/Core Measures Results/Orders Vital Signs/I&O 05/14/20 15:08 Temp 36.9 Pulse 90 Resp 18 B/P (MAP) 127/82 (97) Pulse Ox 97 O2 Delivery Room Air Blood Pressure Mean: 97 Departure Impression Primary Impression: Abdominal wall abscess at site of surgical wound Disposition: 01 HOME, SELF-CARE Condition: Stable Departure-Patient Inst. Decision time for Depature: 16:29 Referrals: NO,LOCAL PHYSICIAN (PCP/Family) Primary Care Physician Patient Instructions: Abscess Incision and Drainage (DC) Add. Discharge Instructions: Keep the site clean with regular soap and water. Bactrim one tablet twice a day for the next 7 days. 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 Hydrocodone one tablet every 6 hours as necessary for pain. Keep your follow-up appointments at [facility]. All discharge instructions reviewed with patient and/or family. Voiced understanding. Scripts Hydrocodone/Acetaminophen (Hydrocodone-Acetamin 5-325 mg) 1 Each Tablet 1 EACH PO Q6H PRN for PAIN-BREAKTHROUGH, #15 TAB 0 Refills Prov: AMANDA WALL 05/14/20 Sulfamethoxazole/Trimethoprim (Bactrim Ds Tablet) 1 Each Tablet 1 EACH PO BID for 7 Days, #14 TAB 0 Refills Prov: AMANDA WALL 05/14/20 AMANDA WALL May 14, 2020 16:26
[2020-05-14] MEDS ORDERED: HYDR-83 PO (16:31)
[2020-05-14] MEDS ORDERED: SULF1TAB35 PO (16:31)
[2020-05-14 16:38] VITALS: BP 126/90
== END 2020-05-14 16:38 | disposition home or self-care (01) ==
LOC: EDUNIT# 15:04 → ER 15:05
DX: T81.41XA Infection following a procedure, superficial incisional surgical site, initial encounter (principal); Z87.891 Personal history of nicotine dependence; Z87.19 Personal history of other diseases of the digestive system; Z82.49 Family history of ischemic heart disease and other diseases of the circulatory system
CPT/HCPCS: 10060

== ENCOUNTER 2020-12-02 20:54 | Emergency (ER) | payer BC ==
[~2020-12-02] VITALS: Ht 188 cm; Wt 70.3 kg
[2020-12-02 21:03] VITALS: BP 134/93
[2020-12-02] MEDS ORDERED: RX-TRIMETH/SULFA. 160-800 MG (BACTRIM DS) TAB PPK#2 PO STA (21:17)
[2020-12-02] MEDS ORDERED: SULF1TAB35 PO (21:20)
[2020-12-02] MEDS ORDERED: OXYC-471 PO (21:20)
--- NOTE | 2020-12-02 21:20 | ED Integumentary General ---
General Chief Complaint: Skin/Wound Problems Stated Complaint: STOMACH ABSCESS Nursing Triage Note: PT AMBULATE TO ROOM 07 WITH C/O ABSCESS TO LOWER ABD. PT STATES HE HAS A SCAR ON HIS ABD AND THAT HE FREQUENTLY GETS AN ABSCESS ON THIS SCAR. PT REPORTS BEING SEEN AT FOR THIS C/O. PT REPORTS THAT IT HAS BEEN X3 MONTHS SINCE HE HAS HAD TO HAVE ABSCESS LANCED. Source: patient Exam Limitations: no limitations History of Present Illness Date Seen by Provider: Dec 02, 2020 Time Seen by Provider: 21:08 Initial Comments To ER with recurrent abdominal wall abscess for about a week at the site of previous incisions. This has been a recurrent issue for him several times. He has had Crohn's disease resulting in near total colectomy over the course of several years and multiple procedures. Subsequently has had Crohn's disease with fistula tract formation to the skin. In regards to this recurrent abdominal wall abscess, he states that he has had a MRI of the abdomen done which showed possibility of a fistulous tract and he states they believe that perhaps one of the sutures used during previous surgeries is serving as the nidus of infection. He denies any fevers chills or weakness or systemic s ymptoms. Timing/Duration: constant Severity: moderate Associated Symptoms: denies symptoms Allergies and Home Medications Allergies Coded Allergies: No Known Drug Allergies (Unverified , 11/04/16) Home Medications Ciprofloxacin HCl 500 Mg Tablet, 500 MG PO BID Prescribed by: ELDER KHAN on 08/02/19217 Hydrocodone Bit/Acetaminophen 1 Tab Tab, 1 EACH PO Q4-6HR PRN for PAIN-MODERATE Prescribed by: ELDER KHAN on 08/02/19 0218 Hydrocodone Bit/Acetaminophen 1 Tab Tab, 1 EACH PO Q6H PRN for PAIN-MODERATE Prescribed by: IRENE ROSALES on 08/28/19 1705 Hydrocodone Bit/Acetaminophen 1 Tab Tab, 1 EACH PO Q4-6HR PRN for PAIN-MODERATE Prescribed by: AMANDA WALL on 10/23/19 1518 Hydrocodone Bit/Acetaminophen 1 Tab Tab, 1 EACH PO Q4-6HR PRN for PAIN-MODERATE Prescribed by: IRENE ROSALES on 11/22/19 1142 Hydrocodone/Acetaminophen 1 Each Tablet, 1 EACH PO Q6H PRN for PAIN-BREAKTHROUGH Prescribed by: AMANDA WALL on 05/14/20 1631 Metronidazole 500 Mg Tablet, 500 MG PO TID Prescribed by: ELDER KHAN on 08/02/19 0218 Ondansetron 4 Mg Tab.rapdis, 4 MG PO Q6H PRN for NAUSEA/VOMITING Prescribed by: AMANDA WALL on 10/23/19 1518 Ondansetron 4 Mg Tab.rapdis, 4 MG PO Q6H PRN for NAUSEA/VOMITING Prescribed by: IRENE ROSALES on 11/22/19 1143 Oxycodone HCl/Acetaminophen 1 Each Tablet, 1 TAB PO Q6H PRN for PAIN-MODERATE Prescribed by: NGOC HATHAWAY on 09/23/19 1151 Oxycodone HCl/Acetaminophen 1 Each Tablet, 1 EACH PO Q4H PRN for PAIN-MODERATE Prescribed by: NGOC HATHAWAY on 12/02/202119 Sulfamethoxazole/Trimethoprim 1 Each Tablet, 1 EACH PO BID Prescribed by: IRENE ROSALES on 08/28/19 1657 Sulfamethoxazole/Trimethoprim 1 Each Tablet, 1 EACH PO BID Prescribed by: AMANDA WALL on 10/23/19 1518 Sulfamethoxazole/Trimethoprim 1 Each Tablet, 1 EACH PO BID Prescribed by: IRENE ROSALES on 11/22/19 1142 Sulfamethoxazole/Trimethoprim 1 Each Tablet, 1 EACH PO BID Prescribed by: AMANDA WALL on 05/14/20 1631 Sulfamethoxazole/Trimethoprim 1 Each Tablet, 1 EACH PO BID Prescribed by: NGOC HATHAWAY on 12/02/202119 Patient Home Medication List Home Medication List Reviewed: Yes Review of Systems Review of Systems Constitutional: see HPI; No chills, No fever EENTM: see HPI Respiratory: no symptoms reported Cardiovascular: no symptoms reported Genitourinary: no symptoms reported Musculoskeletal: no symptoms reported Skin: no symptoms reported Psychiatric/Neurological: No Symptoms Reported Endocrine: No Symptoms Reported Past Zyxehna-Zunhek-Fnpjyi Hx Patient Social History Alcohol Use: Denies Use Drug of Choice: POT Smoking Status: Former Smoker Type Used: Cigars 2nd Hand Smoke Exposure: No Recent Infectious Disease Expo: No Recent Hopitalizations: No Immunizations Up To Date Tetanus Booster (TDap): Less than 5yrs Date of Influenza Vaccine: Aug 02, 2019 Seasonal Allergies Seasonal Allergies: No Past Medical History Surgeries: Yes (ILEOSTOMY 2018) Abdominal, Bowel Surgery Respiratory: No Cardiac: No Neurological: No Reproductive Disorders: No Genitourinary: No Gastrointestinal: Yes Crohns Disease Musculoskeletal: No Endocrine: No HEENT: No Cancer: No Psychosocial: No Integumentary: No Blood Disorders: No Family Medical History Heart Disease, Diabetes, Hypertension, Psychiatric Problems, Other Conditions/Hx Physical Exam Vital Signs Vital Signs - First Documented 12/02/20 21:03 Temp 37.0 Pulse 101 Resp 19 B/P (MAP) 134/93 (107) O2 Delivery Room Air Capillary Refill : Less Than 3 Seconds General Appearance: WD/WN, no apparent distress Neck: non-tender, full range of motion Respiratory: no respiratory distress, no accessory muscle use Extremities: normal range of motion, non-tender Neurologic/Psychiatric: alert, normal mood/affect, oriented x 3 Skin: normal color, warm/dry Skin Problem Character: abscess Progress/Results/Core Measures Results/Orders My Orders Orders - NGOC HATHAWAY APRN Wound Culture (12/02/20 21:17) Rx-Oxycodone/Apap 5-325 Mg (Rx-Percocet (12/02/20 21:30) Rx-Trimeth/Sulfameth Ds Tab (Rx-Bactrim/ (12/02/20 21:17) Vital Signs/I&O 12/02/20 21:03 Temp 37.0 Pulse 101 Resp 19 B/P (MAP) 134/93 (107) O2 Delivery Room Air Blood Pressure Mean: 107 Departure Impression Primary Impression: Abscess Additional Impression: Enterocutaneous fistula Disposition: 01 HOME, SELF-CARE Condition: Stable Departure-Patient Inst. Decision time for Depature: 21:18 Referrals: [facility] (PCP/Family) Primary Care Physician Patient Instructions: Skin Abscess, Enterocutaneous Fistula (DC) Add. Discharge Instructions: 1. Antibiotics as directed. Return to ER for any worsening. Follow-up with [facility]. Call tomorrow for an appointment time. Scripts Oxycodone HCl/Acetaminophen (Oxycodone-Acetaminophen 5-325) 1 Each Tablet 1 EACH PO Q4H PRN for PAIN-MODERATE MDD 6 for 3 Days, #10 TAB 0 Refills Prov: NGOC HATHAWAY APRN 12/02/20 Sulfamethoxazole/Trimethoprim (Bactrim Ds Tablet) 1 Each Tablet 1 EACH PO BID, #10 TAB Prov: NGOC HATHAWAY APRN 12/02/20 NGOC HATHAWAY APRN Dec 02, 2020 21:20
[2020-12-02] MEDS ORDERED: RX-OXYCODONE/APAP 5-325 MG #4 TAB PK PO PRN (21:30)
== END 2020-12-02 21:38 | disposition home or self-care (01) ==
LOC: EDUNIT# 20:54 → ER 20:56
DX: L02.211 Cutaneous abscess of abdominal wall (principal); K63.2 Fistula of intestine; Z87.891 Personal history of nicotine dependence; Z82.49 Family history of ischemic heart disease and other diseases of the circulatory system; Z83.3 Family history of diabetes mellitus
CPT/HCPCS: 87070; 87205; 99283

== ENCOUNTER 2021-01-10 08:06 | Emergency (ER) | payer BC ==
[~2021-01-10] VITALS: Ht 187.9 cm; Wt 69.8 kg
[~2021-01-10 08:06] MED LIST changes: -CIPR500T4 PO; +CIPR500T5 PO; +OXYC1TAB11 PO
[2021-01-10 08:14] VITALS: BP 130/90
--- NOTE | 2021-01-10 08:14 | ED Integumentary General ---
General Stated Complaint: ABCESS MIDDLE OF STOMACH History of Present Illness Date Seen by Provider: Jan 10, 2021 Time Seen by Provider: 08:14 Initial Comments 40-year-old male presents with abdominal wall abscess. Patient gets recurrent abscesses in this area. Patient reports that he has a retained stitch from previous ostomy surgery from Crohn's. That occasionally states she needs a rub on his waistband and he developed abscesses. He has seen a surgeon [facility] for possible removal of the stitch. He denies any fever, chills. He reports that it flared up overnight. He has small area of fluctuation with some large area of induration. He reports this is similar to his previous abscesses. Allergies and Home Medications Allergies Coded Allergies: No Known Drug Allergies (Unverified , 11/04/16) Home Medications Ciprofloxacin HCl 500 Mg Tablet, 500 MG PO BID Prescribed by: ELDER KHAN on 08/02/19217 Hydrocodone Bit/Acetaminophen 1 Tab Tab, 1 EACH PO Q4-6HR PRN for PAIN-MODERATE Prescribed by: ELDER KHAN on 08/02/19217 Hydrocodone Bit/Acetaminophen 1 Tab Tab, 1 EACH PO Q6H PRN for PAIN-MODERATE Prescribed by: IRENE ROSALES on 08/28/19 1705 Hydrocodone Bit/Acetaminophen 1 Tab Tab, 1 EACH PO Q4-6HR PRN for PAIN-MODERATE Prescribed by: AMANDA WALL on 10/23/19 1518 Hydrocodone Bit/Acetaminophen 1 Tab Tab, 1 EACH PO Q4-6HR PRN for PAIN-MODERATE Prescribed by: IRENE ROSALES on 11/22/19 1142 Hydrocodone/Acetaminophen 1 Each Tablet, 1 EACH PO Q6H PRN for PAIN-BREAKTHROUGH Prescribed by: AMANDA WALL on 05/14/20 1631 Metronidazole 500 Mg Tablet, 500 MG PO TID Prescribed by: ELDER KHAN on 08/02/19217 Ondansetron 4 Mg Tab.rapdis, 4 MG PO Q6H PRN for NAUSEA/VOMITING Prescribed by: AMANDA WALL on 10/23/19 1518 Ondansetron 4 Mg Tab.rapdis, 4 MG PO Q6H PRN for NAUSEA/VOMITING Prescribed by: IRENE ROSALES on 11/22/19 1143 Oxycodone HCl/Acetaminophen 1 Each Tablet, 1 TAB PO Q6H PRN for PAIN-MODERATE Prescribed by: NGOC HATHAWAY on 09/23/19 1151 Oxycodone HCl/Acetaminophen 1 Each Tablet, 1 EACH PO Q4H PRN for PAIN-MODERATE Prescribed by: NGOC HATHAWAY on 12/02/202119 Sulfamethoxazole/Trimethoprim 1 Each Tablet, 1 EACH PO BID Prescribed by: IRENE ROSALES on 08/28/19 1657 Sulfamethoxazole/Trimethoprim 1 Each Tablet, 1 EACH PO BID Prescribed by: AMANDA WALL on 10/23/19 1518 Sulfamethoxazole/Trimethoprim 1 Each Tablet, 1 EACH PO BID Prescribed by: IRENE ROSALES on 11/22/19 1142 Sulfamethoxazole/Trimethoprim 1 Each Tablet, 1 EACH PO BID Prescribed by: AMANDA WALL on 05/14/20 1631 Sulfamethoxazole/Trimethoprim 1 Each Tablet, 1 EACH PO BID Prescribed by: NGOC HATHAWAY on 12/02/202119 Patient Home Medication List Home Medication List Reviewed: Yes Review of Systems Review of Systems Constitutional: No chills, No fever EENTM: no symptoms reported Respiratory: no symptoms reported Cardiovascular: no symptoms reported Gastrointestinal: no symptoms reported Genitourinary: no symptoms reported Musculoskeletal: no symptoms reported Skin: see HPI Psychiatric/Neurological: No Symptoms Reported Endocrine: No Symptoms Reported Past Fjaoszh-Imzmqq-Nxwjzx Hx Past Med/Social Hx: Reviewed Nursing Past Med/Soc Hx Patient Social History Drug of Choice: POT Type Used: Cigars 2nd Hand Smoke Exposure: No Recent Hopitalizations: No Immunizations Up To Date Tetanus Booster (TDap): Less than 5yrs Date of Influenza Vaccine: Aug 02, 2019 Seasonal Allergies Seasonal Allergies: No Past Medical History Surgeries: Yes (ILEOSTOMY 2018) Abdominal, Bowel Surgery Respiratory: No Cardiac: No Neurological: No Reproductive Disorders: No Genitourinary: No Gastrointestinal: Yes Crohns Disease Musculoskeletal: No Endocrine: No HEENT: No Cancer: No Psychosocial: No Integumentary: No Blood Disorders: No Family Medical History Heart Disease, Diabetes, Hypertension, Psychiatric Problems, Other Conditions/Hx Physical Exam Vital Signs Vital Signs - First Documented 01/10/21 08:14 Temp 35.8 Pulse 86 Resp 17 B/P (MAP) 130/90 (103) Pulse Ox 99 O2 Delivery Room Air Capillary Refill : General Appearance: no apparent distress Cardiovascular: normal peripheral pulses, regular rate, rhythm Respiratory: lungs clear, normal breath sounds Gastrointestinal: non tender, soft, other (Significant lower midline scar with retained sutures lower abdomen) Neurologic/Psychiatric: alert, oriented x 3 Skin Problem Character: abscess (Abdominal wall near old suture line) Procedures/Interventions I&D : Blade Size: 11 I & D Procedure: betadine prep Progress Small stab incision. A small abdominal wall abscess. Moderate amount of purulent discharge. There is an area of induration is not drainable. Patient tolerated well without difficulty Progress/Results/Core Measures Results/Orders My Orders Orders - GARY URRUTIA DO Wound Culture (01/10/21 08:26) Vital Signs/I&O 01/10/21 08:14 Temp 35.8 Pulse 86 Resp 17 B/P (MAP) 130/90 (103) Pulse Ox 99 O2 Delivery Room Air Departure Impression Primary Impression: Abdominal wall abscess at site of surgical wound Disposition: HOME, SELF-CARE Condition: Stable Departure-Patient Inst. [place]errals: [facility] [place] (PCP/Family) Primary Care Physician Patient Instructions: Abscess Incision and Drainage (DC), Skin Abscess Add. Discharge Instructions: Follow-up with your general surgeon for definitive care and management Scripts Sulfamethoxazole/Trimethoprim (Bactrim Ds Tablet) 1 Each Tablet 1 EACH PO BID, #10 TAB Prov: GARY URRUTIA DO 01/10/21 Hydrocodone/Acetaminophen (Hydrocodone-Acetamin 5-325 mg) 1 Each Tablet 1 EACH PO Q6H PRN for PAIN-BREAKTHROUGH, #10 TAB 0 Refills Prov: GARY URRUTIA DO 01/10/21 GARY URRUTIA DO Jan 10, 2021 08:14
[2021-01-10] MEDS ORDERED: ACHD5005 PO (08:37)
[2021-01-10] MEDS ORDERED: SULF1TAB35 PO (08:37)
== END 2021-01-10 09:14 | disposition home or self-care (01) ==
LOC: EDUNIT# 08:06 → ER 08:08
DX: L76.82 Other postprocedural complications of skin and subcutaneous tissue (principal); L02.211 Cutaneous abscess of abdominal wall; Z93.2 Ileostomy status
CPT/HCPCS: 87070; 87205; 99282

== ENCOUNTER 2021-03-21 18:47 | Emergency (ER) | payer BC ==
[~2021-03-21] VITALS: Ht 187 cm; Wt 72.5 kg
[2021-03-21] MEDS ORDERED: SULF1TAB35 PO (20:15)
[2021-03-21] MEDS ORDERED: HYDROcodone/APAP 5 MG/325 MG (LORTAB) TAB PO ONE (20:15)
[2021-03-21] MEDS ORDERED: TRIM/SULFAMETH 160/800 (SEPTRA DS) TAB PO ONE (20:15)
--- NOTE | 2021-03-21 20:15 | ED Integumentary General ---
General Chief Complaint: Skin/Wound Problems Stated Complaint: ABCESS Nursing Triage Note: PT PRESENTS TO ED TODAY FOR ABCESS ON HIS MID LOWER WAIST LINE. PT REPORTS THAT HE FIRST NOTICED WOUND THIS MORNING. HE HAS A HISTORY OF ABCESS'. Source: patient Exam Limitations: no limitations History of Present Illness Date Seen by Provider: March 21, 2021 Time Seen by Provider: 19:45 Initial Comments Patient presents ER by private conveyance chief complaint that he has an abscess start of midline ventral hernia incision. He has these recurrent abscesses. He says when his HCl he did not bring it for him so he decided come here. He has referral follow-up for a retained suture from previous surgery for resection of colon related to his Crohn's disease at [place], [place] next week. He denies any fever chills nausea vomiting. He says he has about 8 out of 10 pain related abscess and would like something for pain. Allergies and Home Medications Allergies Coded Allergies: No Known Drug Allergies (Unverified , 11/04/16) Home Medications Ciprofloxacin HCl 500 Mg Tablet, 500 MG PO BID Prescribed by: ELDER KHAN on 08/02/19217 Hydrocodone Bit/Acetaminophen 1 Tab Tab, 1 EACH PO Q4-6HR PRN for PAIN-MODERATE Prescribed by: ELDER KHAN on 08/02/19217 Hydrocodone Bit/Acetaminophen 1 Tab Tab, 1 EACH PO Q6H PRN for PAIN-MODERATE Prescribed by: IRENE ROSALES on 08/28/19 1705 Hydrocodone Bit/Acetaminophen 1 Tab Tab, 1 EACH PO Q4-6HR PRN for PAIN-MODERATE Prescribed by: AMANDA WALL on 10/23/19 1518 Hydrocodone Bit/Acetaminophen 1 Tab Tab, 1 EACH PO Q4-6HR PRN for PAIN-MODERATE Prescribed by: IRENE ROSALES on 11/22/19 1142 Hydrocodone/Acetaminophen 1 Each Tablet, 1 EACH PO Q6H PRN for PAIN-BREAKTHROUGH Prescribed by: GARY URRUTIA on 01/10/21 0837 Metronidazole 500 Mg Tablet, 500 MG PO TID Prescribed by: ELDER KHAN on 08/02/19217 Ondansetron 4 Mg Tab.rapdis, 4 MG PO Q6H PRN for NAUSEA/VOMITING Prescribed by: AMANDA WALL on 10/23/19 1518 Ondansetron 4 Mg Tab.rapdis, 4 MG PO Q6H PRN for NAUSEA/VOMITING Prescribed by: IRENE ROSALES on 11/22/19 1143 Oxycodone HCl/Acetaminophen 1 Each Tablet, 1 TAB PO Q6H PRN for PAIN-MODERATE Prescribed by: NGOC HATHAWAY on 09/23/19 1151 Oxycodone HCl/Acetaminophen 1 Each Tablet, 1 EACH PO Q4H PRN for PAIN-MODERATE Prescribed by: NGOC HATHAWAY on 12/02/20 2120 Sulfamethoxazole/Trimethoprim 1 Each Tablet, 1 EACH PO BID Prescribed by: IRENE ROSALES on 08/28/19 1657 Sulfamethoxazole/Trimethoprim 1 Each Tablet, 1 EACH PO BID Prescribed by: AMANDA WALL on 10/23/19 1518 Sulfamethoxazole/Trimethoprim 1 Each Tablet, 1 EACH PO BID Prescribed by: IRENE ROSALES on 11/22/19 1142 Sulfamethoxazole/Trimethoprim 1 Each Tablet, 1 EACH PO BID Prescribed by: AMANDA WALL on 05/14/20 1631 Sulfamethoxazole/Trimethoprim 1 Each Tablet, 1 EACH PO BID Prescribed by: GARY URRUTIA on 01/10/21 0837 Sulfamethoxazole/Trimethoprim 1 Each Tablet, 1 EACH PO BID Prescribed by: AMANDA WALL on 03/21/212014 Patient Home Medication List Home Medication List Reviewed: Yes Review of Systems Review of Systems Constitutional: No chills, No diaphoresis EENTM: No ear discharge, No ear pain Respiratory: No cough, No short of breath Cardiovascular: No chest pain, No edema Gastrointestinal: No abdominal pain, No nausea Genitourinary: No discharge, No dysuria Musculoskeletal: No back pain, No joint pain Skin: see HPI; No pruritus, No rash Psychiatric/Neurological: Denies Anxiety, Denies Depressed All Other Systems Reviewed Negative Unless Noted: Yes Past Wmwidhy-Zemrmi-Dugwym Hx Patient Social History Alcohol Use: Occasionally Uses Drug of Choice: POT Type Used: Cigars 2nd Hand Smoke Exposure: No Recent Infectious Disease Expo: No Recent Hopitalizations: No Immunizations Up To Date Tetanus Booster (TDap): Less than 5yrs Date of Influenza Vaccine: Aug 02, 2019 Seasonal Allergies Seasonal Allergies: No Past Medical History Surgeries: Yes (ILEOSTOMY 2018) Abdominal, Bowel Surgery Respiratory: No Cardiac: No Neurological: No Reproductive Disorders: No Genitourinary: No Gastrointestinal: Yes Crohns Disease Musculoskeletal: No Endocrine: No HEENT: No Cancer: No Psychosocial: No Integumentary: No Blood Disorders: No Family Medical History Heart Disease, Diabetes, Hypertension, Psychiatric Problems, Other Conditions/Hx Physical Exam Vital Signs Vital Signs - First Documented 03/21/21 18:51 Temp 36.7 Pulse 97 Resp 20 B/P (MAP) 107/97 (100) Pulse Ox 99 O2 Delivery Room Air Capillary Refill : Less Than 3 Seconds General Appearance: WD/WN, mild distress HEENT: PERRL/EOMI, pharynx normal Neck: full range of motion, normal inspection Cardiovascular: normal peripheral pulses, regular rate, rhythm Respiratory: no respiratory distress, no accessory muscle use Gastrointestinal: non tender, soft Skin: other (Pointing area with some fluctuance looks to be about 3 to 5 cc in the midline ventral hernia 6 inferior to the umbilicus with mild erythema but no induration or surrounding inflammation.) Procedures/Interventions I&D : Site: Midline abdominal incision Blade Size: 11 I & D Procedure: betadine prep (Chlorhexidine and alcohol), sterile dressing applied Progress Clean site with chlorhexidine, infiltrated with 3 cc of 1% lidocaine without epinephrine. When he was ascertained to be nonweight made a 4 x 4 millimeter crosswise incision and drained about 3 cc of thin purulent material. Wound was flushed with 30 cc of sterile saline and sterile gauze dressing was taped over top. Progress/Results/Core Measures Results/Orders My Orders Orders - AMANDA WALL Sulfamethoxazole/Trimet Ds Tab (Bactrim (03/21/21 20:15) Hydrocodone/Apap 5/325 Tablet (Lortab 5 (03/21/21 20:15) Vital Signs/I&O 03/21/21 18:51 Temp 36.7 Pulse 97 Resp 20 B/P (MAP) 107/97 (100) Pulse Ox 99 O2 Delivery Room Air Blood Pressure Mean: 100 Progress Progress Note : Time: 20:12 Progress Note Patient denies ever having any fistulas. Plan to drain the small abscess. On ultrasound looks to be about maybe 5 cc. We have encouraged him to follow-up with uRby for the retained suture that is tenting his skin. It does not seem to be associated directly with this abscess on ultrasound. Bactrim and [place] for his discomfort. Lidocaine. Departure Impression Primary Impression: Abdominal wall abscess at site of surgical wound Disposition: HOME, SELF-CARE Condition: Stable Departure-Patient Inst. Decision time for Depature: 20:24 Referrals: [facility] (PCP/Family) Primary Care Physician Patient Instructions: Abscess Incision and Drainage (DC) Add. Discharge Instructions: Keep the wound clean with regular soap and water only. Apply clean gauze dry gauze dressing every day or more frequently if it becomes soiled until the wound closes. Showers are acceptable. No submersion until the wound closes. Bactrim 1 tablet twice a day with food. Consider using probiotics twice a day until the antibiotics are done to prevent side effects such as diarrhea. Tylenol 1000 mg every 8 hours as necessary for pain. Warm moist heat applied directly over the site for pain relief. All discharge instructions reviewed with patient and/or family. Voiced understanding. Scripts Sulfamethoxazole/Trimethoprim (Bactrim Ds Tablet) 1 Each Tablet 1 EACH PO BID for 7 Days, #14 TAB 0 Refills Prov: AMANDA WALL 03/21/21 AMANDA WALL March 21, 2021 20:15
[2021-03-21 20:34] VITALS: BP 128/96
== END 2021-03-21 20:34 | disposition home or self-care (01) ==
LOC: EDUNIT# 18:47 → ER 18:48
DX: L02.211 Cutaneous abscess of abdominal wall (principal)
CPT/HCPCS: 99283